=== PATIENT | male | born 1935 | race Caucasian/White ===

== ENCOUNTER 2016-08-18 01:35 | Inpatient (IN) | payer OTHER, MEDICARE ==
[~2016-08-18] VITALS: Ht 172.7 cm; Wt 83.1 kg
[2016-08-18 01:57] VITALS: TEMP 98.2
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
[2016-08-18 02:02] VITALS: O2SAT 91
[2016-08-18 02:18] LABS: AUTOMATED NEUTROPHIL # 6.5 TH/MM3 (1.8-7.7); BASOPHIL % 0.6 % (0.0-2.0); EOSINOPHIL # 0.7 TH/MM3 (0-0.4); EOSINOPHIL % 8.3 % (0.0-4.0); HEMATOCRIT 40.1 % (39.0-51.0); MEAN CELL VOLUME 93.7 FL (80.0-100.0); MEAN CORPUSCULAR HEMOGLOBIN 32.2 PG (27.0-34.0); MEAN CORPUSCULAR HGB CONC 34.4 % (32.0-36.0); MONO % 6.4 % (0.0-8.0); NEUT % 73.7 % (16.0-70.0); PLATELET COUNT 169 TH/MM3 (150-450); RED BLOOD COUNT 4.29 MIL/MM3 (4.50-5.90); WHITE BLOOD COUNT 8.8 TH/MM3 (4.0-11.0)
[2016-08-18 02:21] LABS: HEMO FLAGS AUTO DIFF
[2016-08-18 02:29] LABS: APTT (PATIENT) 28.1 SEC (24.3-30.1); INTERNATIONAL NORMALIZED RATIO 1.1 RATIO; PROTHROMBIN TIME - PATIENT 11.7 SEC (9.8-11.6)
[2016-08-18 02:38] LABS: ALT (GPT) 27 U/L (12-78); ANION GAP 9 MEQ/L (5-15); AST (GOT) 19 U/L (15-37); BICARBONATE 29.7 MEQ/L (21.0-32.0); BLOOD UREA NITROGEN 18 MG/DL (7-18); CHLORIDE 102 MEQ/L (98-107); GLOMERULAR FILTRATION RATE 55 ML/MIN (>89); POTASSIUM 4.3 MEQ/L (3.5-5.1); SODIUM (NA) 141 MEQ/L (136-145)
[2016-08-18 02:48] LABS: ALKALINE PHOSPHATASE 91 U/L (45-117); TOTAL BILIRUBIN ADULT 0.6 MG/DL (0.2-1.0)
[2016-08-18 02:51] LABS: BANDS 3 % (0-6); BASOPHILS 3 % (0-2); EOSINOPHILS 8 % (0-4); MYELOCYTES 2 % (0-0); NEUTROPHIL # MANUAL DIFF 6.2 TH/MM3 (1.8-7.7); POLYS (SEG NEUTROPHILS) 66 % (16-70); SCAN/DIFF FINAL DIFF MANUAL; WBC DIFF SAMPLE 100
[2016-08-18 02:52] LABS: PLATELET ESTIMATE SMEAR NORMAL (NORMAL); PLATELET MORPHOLOGY NORMAL (NORMAL)
[2016-08-18 03:18] LABS: BLOOD, URINE NEG (NEG); COMMENT (UR) CULT NOT INDICATED; CULTURE IF INDICATED CULT NOT INDICATED; GLUCOSE,URINE NEG (NEG); GRANULAR CAST, URINE 5 /lpf; HYALINE CAST, URINE 11 /lpf (RARE); KETONE, URINE TRACE mg/dL (NEG); MUCUS URINE FEW /lpf (OCC); NITRITE,URINE NEG (NEG); PH, URINE 5.5 (5.0-8.5); URINE COLOR YELLOW (YELLW/STRAW)
[2016-08-18 03:22] LABS: AMPHETAMINE, URINE NEG (NEG); BARBITURATES, URINE NEG (NEG); COCAINE, URINE NEG (NEG)
[2016-08-18] MEDS ORDERED: QUET5TAB PO (06:34)
[2016-08-18] MEDS ORDERED: APIX5TAB PO (06:34)
[2016-08-18] MEDS ORDERED: METF1000 PO (06:34)
[2016-08-18] MEDS ORDERED: DIVA250T PO (06:34)
[2016-08-18] MEDS ORDERED: AMLO2.5T PO (06:34)
[2016-08-18] MEDS ORDERED: LISI40TA PO (06:34)
[2016-08-18] MEDS ORDERED: HYDR-3800 (06:34)
[2016-08-18] MEDS ORDERED: MEMA1TAB2 PO (06:34)
[2016-08-18] MEDS ORDERED: TAMS0.4C4 PO (06:34)
[2016-08-18] MEDS ORDERED: SODIUM CHLOR 0.9% 250 ML INJ 250 ML IV ONE (07:00)
[2016-08-18 08:48] VITALS: BP 196/95; PULSE 78; RESP 19; O2SAT 98
[2016-08-18] MEDS ORDERED: ALUMINUM/MAGNESIUM/SIMETH 30 ML CUP PO PRN (11:15)
[2016-08-18] MEDS ORDERED: traZODone HCL 50 MG TAB PO PRN (11:15)
[2016-08-18] MEDS ORDERED: MAGNESIUM HYDROXIDE SUSP 30 ML CUP PO PRN (11:15)
[2016-08-18 12:13] VITALS: BP 217/97; PULSE 88; RESP 20; O2SAT 96
--- NOTE | 2016-08-18 12:21 | PD ---
Physical Exam Date Seen by Provider: Aug 18, 2016 Time Seen by Provider: 12:05 Narrative I was called by the nurse to evaluate this patient who slipped and fell while in [facility]. Patient states he simply lost his balance and fell. He denies hitting his head or loss of consciousness. He has no headache, signs of trauma , or complaints of any kind. Data Data Last Documented VS Vital Signs Date Time Temp Pulse Resp B/P Pulse Ox O2 Delivery O2 Flow Rate FiO2 08/18/16 08:48 78 19 196/95 98 Room Air 08/18/16 01:57 98.2 Orders Complete Blood Count With Diff (08/18/16 01:58) Comprehensive Metabolic Panel (08/18/16 01:58) Prothrombin Time / Inr (Pt) (08/18/16 01:58) Act Partial Throm Time (Ptt) (08/18/16 01:58) Lipase (08/18/16 01:58) Urinalysis - C+S If Indicated (08/18/16 01:58) Cath For Specimen (08/18/16 01:58) Thyroid Stimulating Hormone (08/18/16 01:58) Iv Access Insert/Monitor (08/18/16 01:58) Ecg Monitoring (08/18/16 01:58) Oximetry (08/18/16 01:58) Drug Screen, Random Urine (08/18/16 01:58) Alcohol (Ethanol) (08/18/16 01:58) Psych Screen (08/18/16 01:58) Sodium Chlor 0.9% 250 Ml Inj (Ns 250 Ml (08/18/16 07:00) Admit Order (Ed Use Only) (08/18/16 11:06) Labs Laboratory Tests Test 08/18/16 08/18/16 02:09 03:02 White Blood Count 8.8 TH/MM3 Red Blood Count 4.29 MIL/MM3 Hemoglobin 13.8 GM/DL Hematocrit 40.1 % Mean Corpuscular Volume 93.7 FL Mean Corpuscular Hemoglobin 32.2 PG Mean Corpuscular Hemoglobin 34.4 % Concent Red Cell Distribution Width 15.0 % Platelet Count 169 TH/MM3 Mean Platelet Volume 8.2 FL Neutrophils (%) (Auto) 73.7 % Lymphocytes (%) (Auto) 11.0 % Monocytes (%) (Auto) 6.4 % Eosinophils (%) (Auto) 8.3 % Basophils (%) (Auto) 0.6 % Neutrophils # (Auto) 6.5 TH/MM3 Lymphocytes # (Auto) 1.0 TH/MM3 Monocytes # (Auto) 0.6 TH/MM3 Eosinophils # (Auto) 0.7 TH/MM3 Basophils # (Auto) 0.0 TH/MM3 CBC Comment AUTO DIFF Differential Total Cells 100 Counted Neutrophils % (Manual) 66 % Band Neutrophils % 3 % Lymphocytes % 11 % Monocytes % 7 % Eosinophils % 8 % Basophils % 3 % Neutrophils # (Manual) 6.2 TH/MM3 Myelocytes 2 % Differential Comment FINAL DIFF MANUAL Platelet Estimate NORMAL Platelet Morphology Comment NORMAL Red Cell Morphology Comment NORMAL Prothrombin Time 11.7 SEC Prothromb Time International 1.1 RATIO Ratio Activated Partial 28.1 SEC Thromboplast Time Sodium Level 141 MEQ/L Potassium Level 4.3 MEQ/L Chloride Level 102 MEQ/L Carbon Dioxide Level 29.7 MEQ/L Anion Gap 9 MEQ/L Blood Urea Nitrogen 18 MG/DL Creatinine 1.25 MG/DL Estimat Glomerular Filtration 55 ML/MIN Rate Random Glucose 121 MG/DL Calcium Level 9.3 MG/DL Total Bilirubin 0.6 MG/DL Aspartate Amino Transf 19 U/L (AST/SGOT) Alanine Aminotransferase 27 U/L (ALT/SGPT) Alkaline Phosphatase 91 U/L Total Protein 6.8 GM/DL Albumin 3.1 GM/DL Lipase 240 U/L Thyroid Stimulating Hormone 2.140 uIU/ML 3rd Gen Ethyl Alcohol Level LESS THAN 3 MG/DL Urine Color YELLOW Urine Turbidity CLEAR Urine pH 5.5 Urine Specific [place] 1.012 Urine Protein TRACE mg/dL Urine Glucose (UA) NEG mg/dL Urine Ketones TRACE mg/dL Urine Occult Blood NEG Urine Nitrite NEG Urine Bilirubin NEG Urine Urobilinogen LESS THAN 2.0 MG/DL Urine Leukocyte Esterase NEG Urine RBC LESS THAN 1 /hpf Urine WBC 2 /hpf Urine Hyaline Casts 11 /lpf Urine Granular Casts 5 /lpf Urine Mucus FEW /lpf Microscopic Urinalysis Comment CULT NOT INDICATED Urine Opiates Screen NEG Urine Barbiturates Screen NEG Urine Amphetamines Screen NEG Urine Benzodiazepines Screen NEG Urine Cocaine Screen NEG Urine Cannabinoids Screen NEG MDM Medical Record Reviewed: Yes Supervised Visit with COREY: Yes Narrative Course GENERAL: Patient appears in no acute distress, and is sitting, eating his lunch. SKIN: Warm and dry. Normal color. Normal turgor. No signs of ration, ecchymosis, or other signs of trauma. HEAD: Atraumatic. Normocephalic. Nontender with palpation. EYES: Pupils equal and round. No scleral icterus. No injection or drainage. ENT: No nasal bleeding or discharge. Mucous membranes pink and moist. No dental injury. Pharynx is clear. Airway is patent. NECK: Trachea midline. No bony tenderness or step-off. Range of motion is full and without tenderness. Diagnosis Primary Impression: Agitation Additional Impression: History of dementia Condition: Stable Bret Menendez Aug 18, 2016 12:21
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
[2016-08-18] MEDS: metFORMIN HCL 500 MG TAB PO SCH ×2 (12:30→18:28)
[2016-08-18] MEDS ORDERED: DIVALPROEX SODIUM DELAYED RELEASE 250 MG TAB PO SCH (13:00)
[2016-08-18] MEDS: APIXABAN 5 MG TABLET PO SCH ×2 (13:00→21:00)
[2016-08-18] MEDS: MEMANTINE HCL 10 MG TAB PO SCH ×2 (13:00→21:00)
[2016-08-18] MEDS: DIVALPROEX SODIUM E.R. 250 MG TAB PO SCH ×2 (13:00→21:00)
[2016-08-18] MEDS: TAMSULOSIN HCL 0.4 MG CAP PO SCH ×2 (13:00→18:28)
[2016-08-18] MEDS: LISINOPRIL 20 MG TAB PO SCH (13:00)
[2016-08-18] MEDS: amLODIPine BESYLATE 5 MG TAB PO SCH (13:00)
[2016-08-18] MEDS ORDERED: ZIPRASIDONE MESYLATE 20 MG VIAL IM ONE ×2 (14:13→15:30)
[2016-08-18] MEDS ORDERED: diphenhydrAMINE HCL 50 MG/ML VIAL ONE (14:13)
[2016-08-18 14:27] VITALS: BP 152/77; PULSE 81; RESP 18; O2SAT 97
[2016-08-18] MEDS ORDERED: cloNIDine HCL 0.1 MG TAB PO PRN (15:15)
[2016-08-18] MEDS ORDERED: diphenhydrAMINE HCL 50 MG/ML VIAL IM ONE (15:30)
[2016-08-18] MEDS ORDERED: GLUCAGON 1 MG/ML VIAL OTHER PRN (15:45)
[2016-08-18] MEDS ORDERED: DEXTROSE 50% IN WATER 50 ML VIAL(D50) IV PUSH PRN (15:45)
[2016-08-18] MEDS: INSULIN ASPART SUPPLEMENTAL SCALE SQ SCH ×2 (16:00→20:48)
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
[2016-08-18 18:00] VITALS: BP 159/72; PULSE 73; RESP 18; TEMP 97.8; O2SAT 97
[2016-08-18] MEDS ORDERED: LORazepam 2 MG/ML VIAL IM ONE (23:15)
[2016-08-18] MEDS ORDERED: OLANZapine IM 10 MG VIAL IM ONE (23:15)
[2016-08-19 06:00] VITALS: BP 147/64; PULSE 80; RESP 18; O2SAT 92
[2016-08-19] MEDS: INSULIN ASPART SUPPLEMENTAL SCALE SQ SCH ×4 (06:38→21:23)
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
[2016-08-19] MEDS: DIVALPROEX SODIUM E.R. 250 MG TAB PO SCH ×2 (08:59→21:21)
[2016-08-19] MEDS: APIXABAN 5 MG TABLET PO SCH ×2 (08:59→21:21)
[2016-08-19] MEDS: TAMSULOSIN HCL 0.4 MG CAP PO SCH ×3 (08:59→21:21)
[2016-08-19] MEDS: amLODIPine BESYLATE 5 MG TAB PO SCH (09:00)
[2016-08-19] MEDS: metFORMIN HCL 500 MG TAB PO SCH ×2 (09:00→18:52)
[2016-08-19] MEDS: LISINOPRIL 20 MG TAB PO SCH (09:00)
[2016-08-19] MEDS: MEMANTINE HCL 10 MG TAB PO SCH ×2 (09:00→21:21)
[2016-08-19 10:40] LABS: ALKALINE PHOSPHATASE 94 U/L (45-117); ALT (GPT) 31 U/L (12-78); ANION GAP 8 MEQ/L (5-15); AST (GOT) 34 U/L (15-37); BICARBONATE 32.8 MEQ/L (21.0-32.0); BLOOD UREA NITROGEN 17 MG/DL (7-18); CHLORIDE 104 MEQ/L (98-107); GLOMERULAR FILTRATION RATE 49 ML/MIN (>89); HDL CHOLESTEROL 37.5 MG/DL (40.0-60.0); LDL CHOLESTEROL 132 MG/DL (0-99); POTASSIUM 5.1 MEQ/L (3.5-5.1); SODIUM (NA) 145 MEQ/L (136-145); TOTAL BILIRUBIN ADULT 0.6 MG/DL (0.2-1.0)
[2016-08-19 12:36] LABS: AUTOMATED NEUTROPHIL # 8.5 TH/MM3 (1.8-7.7); BASOPHIL # 0.1 TH/MM3 (0-0.2); BASOPHIL % 1.2 % (0.0-2.0); EOSINOPHIL # 0.4 TH/MM3 (0-0.4); EOSINOPHIL % 3.9 % (0.0-4.0); HEMATOCRIT 42.7 % (39.0-51.0); LYMPHOCYTE # 0.8 TH/MM3 (1.0-4.8); MEAN CELL VOLUME 92.6 FL (80.0-100.0); MEAN CORPUSCULAR HEMOGLOBIN 31.6 PG (27.0-34.0); MEAN CORPUSCULAR HGB CONC 34.1 % (32.0-36.0); NEUT % 79.9 % (16.0-70.0); PLATELET COUNT 181 TH/MM3 (150-450); RED CELL DISTRIBUTION WIDTH 14.8 % (11.6-17.2); WHITE BLOOD COUNT 10.6 TH/MM3 (4.0-11.0)
[2016-08-19 12:38] LABS: HEMO FLAGS AUTO DIFF
--- NOTE | 2016-08-19 13:06 | PD.CARD.PN ---
Subjective Subjective Remarks No complaints, seems more calm Objective Medications Current Medications Medications (Trade) Dose Ordered Sig/Krish Route Start Time Stop Time Status Last Admin (Tylenol) 650 mg Q4H PRN PO 08/18/16 11:15 (Milk Of Magnesia Liq) 30 ml DAILY PRN PO 08/18/16 11:15 (Mag-Al Plus Susp Liq) 30 ml Q6H PRN PO 08/18/16 11:15 (Desyrel) 50 mg HS PRN PO 08/18/16 11:15 (Eliquis) 5 mg BID PO 08/18/16 13:00 08/19/16 08:59 (Namenda) 10 mg BID PO 08/18/16 13:00 08/19/16 09:00 (Glucophage) 1,000 mg BIDPC PO 08/18/16 12:30 08/19/16 09:00 (Flomax) 0.4 mg TID PO 08/18/16 13:00 08/19/16 08:59 (Prinivil) 40 mg DAILY PO 08/18/16 13:00 08/19/16 09:00 (Depakote Er) 250 mg BID PO 08/18/16 13:00 08/19/16 08:59 (Norvasc) 5 mg DAILY PO 08/18/16 13:00 08/19/16 09:00 (Catapres) 0.1 mg Q6H PRN PO 08/18/16 15:15 (D50w (Vial) Inj) 25 ml UNSCH PRN IV PUSH 08/18/16 15:45 (Glucagon Inj) 1 mg UNSCH PRN OTHER 08/18/16 15:45 Vital Signs / I&O Vital Signs Date Time Temp Pulse Resp B/P Pulse Ox O2 Delivery O2 Flow Rate FiO2 08/19/16 06:00 80 18 147/64 92 08/18/16 18:00 97.8 73 18 159/72 97 08/18/16 14:27 81 18 152/77 97 Room Air I/O 08/18/16 08/18/16 08/18/16 08/19/16 08/19/16 08/19/16 07:00 15:00 23:00 07:00 15:00 23:00 Intake Total 240 ml 240 ml 720 ml Balance 240 ml 240 ml 720 ml Intake Oral 240 ml 240 ml 720 ml # Voids 1 1 1 2 Physical Exam GENERAL: NAD SKIN: Warm and dry. HEAD: Atraumatic. Normocephalic. EYES: Pupils equal and round. No scleral icterus. No injection or drainage. ENT: No nasal bleeding or discharge. Mucous membranes pink and moist. NECK: Trachea midline. No JVD. CARDIOVASCULAR: Regular rate and rhythm. 02/28 crescendo-decrescendo murmur to the RSB RESPIRATORY: No accessory muscle use. Clear to auscultation. Breath sounds equal bilaterally. GASTROINTESTINAL: Abdomen soft, non-tender, nondistended. Hepatic and splenic margins not palpable. MUSCULOSKELETAL: Extremities without clubbing, cyanosis, or edema. No obvious deformities. NEUROLOGICAL: Awake and alert. No obvious cranial nerve deficits. Motor grossly within normal limits. Five out of 5 muscle strength in the arms and legs. Normal speech. PSYCHIATRIC: Appropriate mood and affect; insight and judgment normal. Laboratory Laboratory Tests Test 08/19/16 08/19/16 06:45 11:34 Sodium Level 145 MEQ/L Potassium Level 5.1 MEQ/L Chloride Level 104 MEQ/L Carbon Dioxide Level 32.8 MEQ/L Anion Gap 8 MEQ/L Blood Urea Nitrogen 17 MG/DL Creatinine 1.39 MG/DL Estimat Glomerular Filtration 49 ML/MIN Rate Random Glucose 125 MG/DL Calcium Level 9.8 MG/DL Total Bilirubin 0.6 MG/DL Aspartate Amino Transf 34 U/L (AST/SGOT) Alanine Aminotransferase 31 U/L (ALT/SGPT) Alkaline Phosphatase 94 U/L Total Protein 7.2 GM/DL Albumin 3.4 GM/DL Triglycerides Level 120 MG/DL Cholesterol Level 193 MG/DL LDL Cholesterol 132 MG/DL HDL Cholesterol 37.5 MG/DL Cholesterol/HDL Ratio 5.14 RATIO Vitamin B12 Level 1326 PG/ML 25-Hydroxy Vitamin D Total 15.7 ng/ML Thyroid Stimulating Hormone 1.950 uIU/ML 3rd Gen White Blood Count 10.6 TH/MM3 Red Blood Count 4.60 MIL/MM3 Hemoglobin 14.5 GM/DL Hematocrit 42.7 % Mean Corpuscular Volume 92.6 FL Mean Corpuscular Hemoglobin 31.6 PG Mean Corpuscular Hemoglobin 34.1 % Concent Red Cell Distribution Width 14.8 % Platelet Count 181 TH/MM3 Mean Platelet Volume 8.4 FL Neutrophils (%) (Auto) 79.9 % Lymphocytes (%) (Auto) 8.0 % Monocytes (%) (Auto) 7.0 % Eosinophils (%) (Auto) 3.9 % Basophils (%) (Auto) 1.2 % Neutrophils # (Auto) 8.5 TH/MM3 Lymphocytes # (Auto) 0.8 TH/MM3 Monocytes # (Auto) 0.7 TH/MM3 Eosinophils # (Auto) 0.4 TH/MM3 Basophils # (Auto) 0.1 TH/MM3 CBC Comment AUTO DIFF Assessment and Plan Problem List: (1) Dementia in other diseases classified elsewhere with behavioral disturbance (2) History of dementia (3) Agitation (4) HTN (hypertension) (5) CVA (cerebral vascular accident) Assessment and Plan 1) EKG pending for QTc 2) No further cardiovascular intervention 3) Con't to follow vitals 4) Discussed with daughter, plan to avoid medications as best as we can that cause problems with the heart, but have to work within our means Mariano Simms DO Aug 19, 2016 13:06
[2016-08-19 13:16] LABS: HEMOGLOBIN A1a 1.7 %; HEMOGLOBIN A1b 1.8 %; HEMOGLOBIN LA1C 1.2 %; HEMOGLOBIN P3 3.6 %
--- NOTE | 2016-08-19 13:16 | HHI.PYPN ---
Subjective Remarks Patient seen in dayroom with medical student Mat and patient's daughter Crystal was an emergency department nurse. Daughter is history of patient having dementia followed by CVA and the development of multi-infarct dementia with increased owning. This also issues with significant side effects from medications related to his cardiac status. Though it appears to Depakote and Seroquel are being tolerated well we will restart the Seroquel at 50 mg 3 times a day Review of Systems Except as stated in HPI: all other systems reviewed are Neg Objective Alert: Yes [place]: Person (vaguely) Mood: Anxious (mildly), Calm Affect: Restricted (slightly) Memory Intact: Comment (poor) Hallucinations: Other (denies) Delusions: No Delusion Type: Other (mildly vigilant) Suicidal: Ideation (denies) Homicidal: Ideation (deny) Insight/Judgment Poor Labs Test 08/19/16 08/19/16 06:45 11:34 Sodium Level 145 MEQ/L Potassium Level 5.1 MEQ/L Chloride Level 104 MEQ/L Carbon Dioxide Level 32.8 MEQ/L Anion Gap 8 MEQ/L Blood Urea Nitrogen 17 MG/DL Creatinine 1.39 MG/DL Estimat Glomerular Filtration 49 ML/MIN Rate Random Glucose 125 MG/DL Calcium Level 9.8 MG/DL Total Bilirubin 0.6 MG/DL Aspartate Amino Transf 34 U/L (AST/SGOT) Alanine Aminotransferase 31 U/L (ALT/SGPT) Alkaline Phosphatase 94 U/L Total Protein 7.2 GM/DL Albumin 3.4 GM/DL Triglycerides Level 120 MG/DL Cholesterol Level 193 MG/DL LDL Cholesterol 132 MG/DL HDL Cholesterol 37.5 MG/DL Cholesterol/HDL Ratio 5.14 RATIO Vitamin B12 Level 1326 PG/ML 25-Hydroxy Vitamin D Total 15.7 ng/ML Thyroid Stimulating Hormone 1.950 uIU/ML 3rd Gen White Blood Count 10.6 TH/MM3 Red Blood Count 4.60 MIL/MM3 Hemoglobin 14.5 GM/DL Hematocrit 42.7 % Mean Corpuscular Volume 92.6 FL Mean Corpuscular Hemoglobin 31.6 PG Mean Corpuscular Hemoglobin 34.1 % Concent Red Cell Distribution Width 14.8 % Platelet Count 181 TH/MM3 Mean Platelet Volume 8.4 FL Neutrophils (%) (Auto) 79.9 % Lymphocytes (%) (Auto) 8.0 % Monocytes (%) (Auto) 7.0 % Eosinophils (%) (Auto) 3.9 % Basophils (%) (Auto) 1.2 % Neutrophils # (Auto) 8.5 TH/MM3 Lymphocytes # (Auto) 0.8 TH/MM3 Monocytes # (Auto) 0.7 TH/MM3 Eosinophils # (Auto) 0.4 TH/MM3 Basophils # (Auto) 0.1 TH/MM3 CBC Comment AUTO DIFF Vitals/IOs Vital Signs Date Time Temp Pulse Resp B/P Pulse Ox O2 Delivery O2 Flow Rate FiO2 08/19/16 06:00 80 18 147/64 92 08/18/16 18:00 97.8 08/18/16 14:27 Room Air Intake and Output 08/18/16 08/18/16 08/19/16 08:00 16:00 00:00 Intake Total 240 ml Balance 240 ml Assessment & Plan Problem List: (1) Dementia in other diseases classified elsewhere with behavioral disturbance ICD Code: F02.81 Assessment & Plan Estimated LOS: days patient continues demented and confused, the no behavior problems have been noted so far today. Daughter confirms willingness to use Seroquel and Depakote at this time we'll reassess to the Seroquel at 50 mg 3 times a day Justification for Cont. Inpt. At this time patient will decompensate then placed in a lower level of care Discharge Planning To be determined Jeovanny Stewart MD Aug 19, 2016 13:16
[2016-08-19 13:25] LABS: SCAN/DIFF AUTO DIFF CONFIRMED
[2016-08-19] MEDS: QUEtiapine FUMARATE 25 MG TAB PO SCH (18:52)
[2016-08-20] MEDS: INSULIN ASPART SUPPLEMENTAL SCALE SQ SCH ×4 (07:00→20:30)
[2016-08-20] MEDS: amLODIPine BESYLATE 5 MG TAB PO SCH (09:00)
[2016-08-20] MEDS: APIXABAN 5 MG TABLET PO SCH ×2 (09:00→21:12)
[2016-08-20 09:25] VITALS: BP 112/69; PULSE 65; RESP 16; TEMP 97.4; O2SAT 97
[2016-08-20] MEDS: LISINOPRIL 20 MG TAB PO SCH (09:29)
[2016-08-20] MEDS: DIVALPROEX SODIUM E.R. 250 MG TAB PO SCH ×2 (09:29→21:12)
[2016-08-20] MEDS: MEMANTINE HCL 10 MG TAB PO SCH ×2 (09:29→21:12)
[2016-08-20] MEDS: metFORMIN HCL 500 MG TAB PO SCH ×2 (09:30→17:47)
[2016-08-20] MEDS: QUEtiapine FUMARATE 25 MG TAB PO SCH ×3 (09:30→17:47)
--- NOTE | 2016-08-20 10:47 | HHI.PYPN ---
Subjective Remarks Patient seen on unit with nurse Columba, chart reviewed, patient compliant medications. Patient sitting in Amira chair is calm cooperative with diffusely confused. While he needs assistance his showing no behavioral issues at this time. However patient did need EPO of Zyprexa around 3 PM yesterday for some increased agitation Review of Systems Except as stated in HPI: all other systems reviewed are Neg Objective Alert: Yes [place]: Person (vaguely) Mood: Anxious (mildly), Calm Affect: Restricted (slightly) Memory Intact: Comment (poor) Hallucinations: Other (denies) Delusions: No Delusion Type: Other (mildly vigilant) Suicidal: Ideation (denies) Homicidal: Ideation (deny) Insight/Judgment Poor Labs Test 08/19/16 11:34 White Blood Count 10.6 TH/MM3 Red Blood Count 4.60 MIL/MM3 Hemoglobin 14.5 GM/DL Hematocrit 42.7 % Mean Corpuscular Volume 92.6 FL Mean Corpuscular Hemoglobin 31.6 PG Mean Corpuscular Hemoglobin 34.1 % Concent Red Cell Distribution Width 14.8 % Platelet Count 181 TH/MM3 Mean Platelet Volume 8.4 FL Neutrophils (%) (Auto) 79.9 % Lymphocytes (%) (Auto) 8.0 % Monocytes (%) (Auto) 7.0 % Eosinophils (%) (Auto) 3.9 % Basophils (%) (Auto) 1.2 % Neutrophils # (Auto) 8.5 TH/MM3 Lymphocytes # (Auto) 0.8 TH/MM3 Monocytes # (Auto) 0.7 TH/MM3 Eosinophils # (Auto) 0.4 TH/MM3 Basophils # (Auto) 0.1 TH/MM3 CBC Comment AUTO DIFF Differential Comment AUTO DIFF CONFIRMED Vitals/IOs Vital Signs Date Time Temp Pulse Resp B/P Pulse Ox O2 Delivery O2 Flow Rate FiO2 08/20/16 09:25 97.4 65 16 112/69 97 08/18/16 14:27 Room Air Intake and Output 08/19/16 08/19/16 08/20/16 08:00 16:00 00:00 Intake Total 240 ml 720 ml 2235 ml Balance 240 ml 720 ml 2235 ml Assessment & Plan Problem List: (1) Dementia in other diseases classified elsewhere with behavioral disturbance ICD Code: F02.81 Assessment & Plan Estimated LOS: days patient continues confused and demented, show some behavioral issues yesterday late afternoon was been no problems so far today. For now continue treatment Justification for Cont. Inpt. At this time patient will decompensate if placed a lower level of care Discharge Planning To be determined Jeovanny Stewart MD Aug 20, 2016 10:47
--- NOTE | 2016-08-20 12:56 | PD.CARD.PN ---
Subjective Subjective Remarks No complaints, per nursing mildly confused Objective Medications Current Medications Medications (Trade) Dose Ordered Sig/Krish Route Start Time Stop Time Status Last Admin (Tylenol) 650 mg Q4H PRN PO 08/18/16 11:15 (Milk Of Magnesia Liq) 30 ml DAILY PRN PO 08/18/16 11:15 (Mag-Al Plus Susp Liq) 30 ml Q6H PRN PO 08/18/16 11:15 (Desyrel) 50 mg HS PRN PO 08/18/16 11:15 Hold (Eliquis) 5 mg BID PO 08/18/16 13:00 08/20/16 09:00 (Namenda) 10 mg BID PO 08/18/16 13:00 08/20/16 09:29 (Glucophage) 1,000 mg BIDPC PO 08/18/16 12:30 08/20/16 09:30 (Prinivil) 40 mg DAILY PO 08/18/16 13:00 08/20/16 09:29 (Depakote Er) 250 mg BID PO 08/18/16 13:00 08/20/16 09:29 (Norvasc) 5 mg DAILY PO 08/18/16 13:00 08/20/16 09:00 (Catapres) 0.1 mg Q6H PRN PO 08/18/16 15:15 (D50w (Vial) Inj) 25 ml UNSCH PRN IV PUSH 08/18/16 15:45 (Glucagon Inj) 1 mg UNSCH PRN OTHER 08/18/16 15:45 (Flomax) 0.4 mg HS PO 08/19/16 21:00 08/19/16 21:21 (SEROquel) 50 mg TID PO 08/19/16 18:00 08/20/16 09:30 (ZyPREXA INJ) 5 mg Q8HR PRN IM 08/19/16 14:45 Vital Signs / I&O Vital Signs Date Time Temp Pulse Resp B/P Pulse Ox O2 Delivery O2 Flow Rate FiO2 08/20/16 09:25 97.4 65 16 112/69 97 I/O 08/19/16 08/19/16 08/19/16 08/20/16 08/20/16 08/20/16 07:00 15:00 23:00 07:00 15:00 23:00 Intake Total 240 ml 720 ml 2235 ml 0 ml 480 ml Balance 240 ml 720 ml 2235 ml 0 ml 480 ml Intake Oral 240 ml 720 ml 2235 ml 0 ml 480 ml # Voids 2 4 1 Physical Exam GENERAL: NAD SKIN: Warm and dry. HEAD: Atraumatic. Normocephalic. EYES: Pupils equal and round. No scleral icterus. No injection or drainage. ENT: No nasal bleeding or discharge. Mucous membranes pink and moist. NECK: Trachea midline. No JVD. CARDIOVASCULAR: Regular rate and rhythm. 1/6 crescendo-decrescendo murmur to the RSB RESPIRATORY: No accessory muscle use. Clear to auscultation. Breath sounds equal bilaterally. GASTROINTESTINAL: Abdomen soft, non-tender, nondistended. Hepatic and splenic margins not palpable. MUSCULOSKELETAL: Extremities without clubbing, cyanosis, or edema. No obvious deformities. NEUROLOGICAL: Awake and alert. No obvious cranial nerve deficits. Motor grossly within normal limits. Five out of 5 muscle strength in the arms and legs. Normal speech. PSYCHIATRIC: Appropriate mood and affect; insight and judgment normal. Assessment and Plan Problem List: (1) Dementia in other diseases classified elsewhere with behavioral disturbance (2) History of dementia (3) Agitation (4) HTN (hypertension) (5) CVA (cerebral vascular accident) Assessment and Plan 1) QTc 444 2) No further cardiovascular intervention 3) Con't to follow vitals, currently stable 4) Discussed with daughter, plan to avoid medications as best as we can that cause problems with the heart, but have to work within our means 5) Will see PRN, call with questions Mariano Simms DO Aug 20, 2016 12:56
--- NOTE | 2016-08-20 13:25 | HHI.PR ---
Objective Vitals Vital Signs Date Time Temp Pulse Resp B/P Pulse Ox O2 Delivery O2 Flow Rate FiO2 08/20/16 09:25 97.4 65 16 112/69 97 I/O 08/19/16 08/19/16 08/19/16 08/20/16 08/20/16 08/20/16 06:59 14:59 22:59 06:59 14:59 22:59 Intake Total 240 ml 720 ml 2235 ml 0 ml 480 ml Balance 240 ml 720 ml 2235 ml 0 ml 480 ml Intake Oral 240 ml 720 ml 2235 ml 0 ml 480 ml # Voids 2 4 1 Result Diagram: 08/19/16 1134 08/19/16 0645 Juan Manuel Christianson Aug 20, 2016 13:25
--- NOTE | 2016-08-20 15:38 | HHI.PR ---
Subjective Remarks Follow-up visit dementia, coronary artery disease, hypertension, history of CVA currently on Eliquis, diabetes, BPH, questionable seizure disorder. Patient seen and examined today. States he is doing okay. As per nursing, patient has improved behavior compared to previous days. Denies pain and discomfort. Denies SOB/ dyspnea. Denies chest pain, palpitations, headaches, dizziness. Denies fevers, chills, n/v/d. Denies dysuria. Objective Vitals Vital Signs Date Time Temp Pulse Resp B/P Pulse Ox O2 Delivery O2 Flow Rate FiO2 08/20/16 09:25 97.4 65 16 112/69 97 I/O 08/19/16 08/19/16 08/19/16 08/20/16 08/20/16 08/20/16 07:00 15:00 23:00 07:00 15:00 23:00 Intake Total 240 ml 720 ml 2235 ml 0 ml 480 ml Balance 240 ml 720 ml 2235 ml 0 ml 480 ml Intake Oral 240 ml 720 ml 2235 ml 0 ml 480 ml # Voids 2 4 1 Result Diagram: 08/19/16 1134 08/19/16 0645 Objective Remarks GENERAL: This is a well-nourished, well-developed patient, in no apparent distress. SKIN: Warm and dry. HEENT: Normocephalic. Pupils equal round and reactive. Nose without bleeding. Airway patent. NECK: Trachea midline. No JVD. Supple. CARDIOVASCULAR: Regular rate and rhythm without murmurs, gallops, or rubs. RESPIRATORY: Clear to auscultation. Breath sounds equal bilaterally. No wheezes , rales, or rhonchi. GASTROINTESTINAL: Abdomen soft, non-tender, nondistended. Bowel Sounds normoactive x4. MUSCULOSKELETAL: Extremities without clubbing, cyanosis, bilateral lower extremity +2 edema. NEUROLOGICAL: Awake and alert. Oriented to place, person. Bilateral lower extremity weakness. Normal speech. A/P Problem List: (1) History of dementia ICD Code: Z86.59 Status: Acute (2) CVA (cerebral vascular accident) ICD Code: I63.9 Status: Acute (3) HTN (hypertension) ICD Code: I10 Status: Acute Assessment and Plan 81-year-old male with past medical history of dementia, coronary artery disease , hypertension, history of CVA currently on Eliquis, diabetes, BPH and possible seizure disorder who was brought into the ED under Gao act and became combative with the staff at the [facility] he [facility]. Patient's been admitted to psychiatric and it hospitalist services have been consulted for medical management. Dementia with behavioral disturbances - Management per psychiatric team - On Memantine 10mg BID, Seroquel, Zyprexa Coronary artery disease Hypertension, accelerated Atrial fibrillation - Cardiology services consulted recommended to avoid medications that could prolong QTc - Continue home antihypertensives - Lisinopril 40mg daily, Amlodipine 5mg daily. Increase as needed - Clonidine prn - Continue Eliquis - Improving BP trend Acute kidney injury on chronic kidney disease - Encourage by mouth fluid hydration - Monitor creatinine trend Bilateral lower extremity edema - Elevate bilateral lower extremity - Poor mobility Hyperlipidemia - Patient is allergic to HMG CoA reductase inhibitors - May start fish oil, [place] 3 and Zetia - May benefit with PCSK9 inhibitors - Evolocumab, alirocumab. Will need to follow-up with primary care doctor. History of CVA - Patient denies residual weakness - Continue home Eliquis - Patient witnessed having some difficulty with ambulation, appears unsteady on his feet. - Followed by physical therapy DM 2 - Hemoglobin A1c 6.5. Controlled - Continue metformin - Accu-Cheks - Insulin sliding scale Questionable history of seizure disorder - Patient denies - Continue home dose of valproic acid Vitamin D insufficiency - Start vitamin D supplementation - Repeat vitamin D levels in 3 months as an outpatient BPH - Continue home dose of tamsulosin DVT prophylaxis - Ambulation Discussed with patient, nursing, Juan Manuel Grant Aug 20, 2016 15:38
--- NOTE | 2016-08-20 16:01 | PD.CONS ---
Provisional Diagnosis Admission Date Aug 18, 2016 at 11:09 [place]. 1. Dementia with behavioral disturbance [place] II. Deferred [place] V. GAF is 30 presently History of Present Illness Service Psychiatry Consult Requested By Dr. Stewart Reason for Consult Second opinion for involuntary psychiatric hospitalization Primary Care Physician Traci Doty Do, MD HPI From Dr. Ely's H&P: This is an 81-year-old male with a history of dementia, CVA, cardiac disease, diabetes, and recent sundowning. Apparently the patient was recently at [facility] and last night he became agitated, belligerent and physically aggressive towards staff members. As a result of his violence and attempted violence toward staff members, he was Gao acted. At this time the patient is calm, pleasant and cooperative. He does not have a complete memory of what occurred last night. He is telling this physician that he was in some way disrespected by staff. However, this physician spoke with the patient's daughter, who is an emergency room nurse. The daughter indicates that her father sundown's rather badly in the late afternoon and early evening. At these times he becomes very confused, paranoid and aggressive towards others. He was recently treated at [facility] and had significant cardiac reactions to Haldol and Ativan, substantially altering his blood pressure, heart rate, etc. and necessitating intensive care monitoring. He was eventually placed on Seroquel 50 mg 3 times a day and Depakote 250 mg 3 times a day. Unfortunately, it appears these medicines are not working as the patient continues to sundown with violence towards others. He does not have a history of alcoholism or drug abuse. However, his daughter states since his cerebral vascular accident, he has been much more difficult to manage. On my examination today: Patient seen and examined. Chart reviewed. Case discussed with nursing staff. On my examination today, the patient is presently calm but confused. See full mental status testing below. He is unable to say why he came into the hospital. He is presently somewhat guarded. He denies feeling depressed. He denies any hallucinations. Denies any SI or HI. Psychiatric interview is limited, I suspect from a combination of his guardedness and also cognitive impairment. Past psychiatric history: The patient is likely an unreliable historian but denies a history of inpatient or other psychiatric treatment. Family history: The patient denies any family history of mental illness. Chemical dependency history: The patient denies any abuse of drugs or alcohol. Social history: The patient reports that he is with 3 children. 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 He was in the [employer] and had an honorable discharge. Review of Systems ROS Limitations: Poor Historian Except as stated in HPI: all other systems reviewed are Neg Past Family Social History Coded Allergies: HMG-CoA Reductase Inhibitors (Verified Allergy, Unknown, 08/18/16) Past Medical History See EMR Reported Medications Hydralazine HCl 50 Mg Tablet 08/18/16 Quetiapine 50 Mg Tab50 Mg PO TID #60 TAB Ref 0 08/18/[address] 250 Mg Qombd118 Mg PO TID #60 TAB Ref 0 08/18/16 Tamsulosin 0.4 Mg Cap0.4 Mg PO TID #30 CAP Ref 0 08/18/16 Lisinopril 40 Mg Tab40 Mg PO DAILY #30 TAB Ref 0 08/18/16 Amlodipine Unknown Strength Tab5 PO DAILY #30 TAB Ref 0 08/18/16 Memantine 10 Mg Tab10 Mg PO BID Ref 0 08/18/16 Metformin 1,000 Mg Tab1,000 Mg PO BIDPC #60 TAB Ref 0 With meals 08/18/16 Apixaban (Eliquis)5 Mg Tab5 Mg PO BID #60 TAB Ref 0 08/18/16 Current Medications Medications (Trade) Dose Ordered Sig/Krish Route Start Time Stop Time Status Last Admin (Tylenol) 650 mg Q4H PRN PO 08/18/16 11:15 (Milk Of Magnesia Liq) 30 ml DAILY PRN PO 08/18/16 11:15 (Mag-Al Plus Susp Liq) 30 ml Q6H PRN PO 08/18/16 11:15 (Desyrel) 50 mg HS PRN PO 08/18/16 11:15 Hold (Eliquis) 5 mg BID PO 08/18/16 13:00 08/20/16 09:00 (Namenda) 10 mg BID PO 08/18/16 13:00 08/20/16 09:29 (Glucophage) 1,000 mg BIDPC PO 08/18/16 12:30 08/20/16 09:30 (Prinivil) 40 mg DAILY PO 08/18/16 13:00 08/20/16 09:29 (Depakote Er) 250 mg BID PO 08/18/16 13:00 08/20/16 09:29 (Norvasc) 5 mg DAILY PO 08/18/16 13:00 08/20/16 09:00 (Catapres) 0.1 mg Q6H PRN PO 08/18/16 15:15 (D50w (Vial) Inj) 25 ml UNSCH PRN IV PUSH 08/18/16 15:45 (Glucagon Inj) 1 mg UNSCH PRN OTHER 08/18/16 15:45 (Flomax) 0.4 mg HS PO 08/19/16 21:00 08/19/16 21:21 (SEROquel) 50 mg TID PO 08/19/16 18:00 08/20/16 13:00 (ZyPREXA INJ) 5 mg Q8HR PRN IM 08/19/16 14:45 Family History See above Social History See above Patient's Strengths (min. 2) In a monitored setting. Verbally fluent. Physical Exam Physical exam completed by hospitalist. On my examination today, the patient appears to be in no acute physical distress. No motor abnormality noted. Labs and vital signs reviewed: Vital Signs Vital Signs Date Time Temp Pulse Resp B/P Pulse Ox O2 Delivery O2 Flow Rate FiO2 08/20/16 09:25 97.4 65 16 112/69 97 08/18/16 14:27 Room Air I/O 08/19/16 08/19/16 08/20/16 08:00 16:00 00:00 Intake Total 240 ml 720 ml 2235 ml Balance 240 ml 720 ml 2235 ml Lab Results Item Value Date Time White Blood Count 10.6 TH/MM3 08/19/16 1134 Hemoglobin 14.5 GM/DL 08/19/16 1134 Platelet Count 181 TH/MM3 08/19/16 1134 Sodium Level 145 MEQ/L 08/19/16 0645 Potassium Level 5.1 MEQ/L # 08/19/16 0645 Chloride Level 104 MEQ/L 08/19/16 0645 Carbon Dioxide Level 32.8 MEQ/L H 08/19/16 0645 Blood Urea Nitrogen 17 MG/DL 08/19/16 0645 Creatinine 1.39 MG/DL H 08/19/16 0645 Aspartate Amino Transf (AST/SGOT) 34 U/L 08/19/16 0645 Alanine Aminotransferase (ALT/SGPT) 31 U/L 08/19/16 0645 Alkaline Phosphatase 94 U/L 08/19/16 0645 25-Hydroxy Vitamin D Total 15.7 ng/ML L 08/19/16 06 Vitamin B12 Level 1326 PG/ML H 08/19/16 06 Thyroid Stimulating Hormone 3rd Gen 1.950 uIU/ML 08/19/16 06 Toxicology and urinalysis results reviewed. Mental Status Examination Patient is casually dressed. He is somewhat disheveled. He is awake and alert and oriented to person only. His registration is 3 out of 3 but his recall is 0 out of 3 at 3 minutes. He is able to spell the word world forwards but not backwards. He is able to name 2 items but struggles to repeat a phrase. No motor abnormalities noted. Speech somewhat sparse but otherwise within normal limits for rate, tone and volume. Memory impaired. Mood fair. Affect flat. Paucity of thought. No delusions although the patient is somewhat guarded. Denies audiovisual hallucinations. Denies suicidal or homicidal ideation but is likely unreliable to contract for safety. Insight and judgment are poor. Assessment & Plan Problem List: (1) Dementia in other diseases classified elsewhere with behavioral disturbance ICD Code: F02.81 Assessment & Plan Given the circumstances of the patient's presentation here and his presentation on my examination today, I concur with Dr. Stewart that the patient meets criteria for involuntary psychiatric hospitalization under the Gao act. I completed the second opinion paperwork. Further care as per Dr. Stewart. Thank you very much for this consultation. Signing off. Request HC Surrog/Guard Advoc?: Yes Danilo Woods MD Aug 20, 2016 16:01
[2016-08-20 18:00] VITALS: BP 107/58; PULSE 73; RESP 16; TEMP 89.8; O2SAT 98
--- NOTE | 2016-08-20 20:59 | RADRPT ---
EXAM DATE/TIME: 08/19/2016 19:57 [facility] COMPARISON: No previous studies available for comparison. INDICATIONS : Bilateral leg swelling. MEDICAL HISTORY : Dementia. Seizures. Anticoagulant therapy. Prostate cancer. SURGICAL HISTORY : CABG ENCOUNTER: Initial ACUITY: 1 week PAIN SCORE: 1/10 LOCATION: Bilateral legs. TECHNIQUE: Venous ultrasound of the left and right leg was performed from the inguinal ligament to the proximal calf. Real-time, color Doppler and spectral tracing, compression and augmentation techniques were us ed. FINDINGS: RIGHT LEG: There is normal compressibility of the deep venous system from the inguinal region to the proximal ca lf. No echogenic clot is seen in the lumen of the common femoral, femoral, popliteal, and posterior tibial veins. There is a normal response of the venous system to proximal and distal augmentation an d respiration. LEFT LEG: There is normal compressibility of the deep venous system from the inguinal region to the proximal ca lf. No echogenic clot is seen in the lumen of the common femoral, femoral, popliteal, and posterior tibial veins. There is a normal response of the venous system to proximal and distal augmentation an d respiration. There is a Gao's cyst measuring up to 3 cm in the popliteal fossa. CONCLUSION: 1. No evidence of deep venous thrombosis. 2. Small to moderate size Gao's cyst left popliteal fossa. Clayton Greer MD on August 20, 2016 at 20:55 Board Certified Radiologist. This report was verified electronically.
[2016-08-20] MEDS: TAMSULOSIN HCL 0.4 MG CAP PO SCH (21:12)
[2016-08-20] MEDS: OLANZapine IM 10 MG VIAL IM PRN (22:13)
--- NOTE | 2016-08-20 23:42 | EKG ---
Date Performed: 08/19/2016 Time Performed: 14:40:08 PTAGE: 81 years EKG: ATRIAL FIBRILLATION INDETERMINATE AXIS RIGHT BUNDLE BRANCH BLOCK ABNORMAL ECG NO PREVIOUS TRACING DOCTOR: Ava Palacios Interpretating Date/Time 08/20/2016 23:41:05
[2016-08-21] MEDS: INSULIN ASPART SUPPLEMENTAL SCALE SQ SCH ×4 (05:35→21:00)
[2016-08-21] MEDS: GEMFIBROZIL 600 MG TAB PO SCH ×2 (05:45→16:00)
[2016-08-21 06:01] VITALS: BP 133/65; PULSE 79; RESP 18; TEMP 96.8; O2SAT 97
[2016-08-21] MEDS: amLODIPine BESYLATE 5 MG TAB PO SCH (09:06)
[2016-08-21] MEDS: QUEtiapine FUMARATE 25 MG TAB PO SCH (09:06)
[2016-08-21] MEDS: MEMANTINE HCL 10 MG TAB PO SCH ×2 (09:06→22:15)
[2016-08-21] MEDS: LISINOPRIL 20 MG TAB PO SCH (09:06)
[2016-08-21] MEDS: DIVALPROEX SODIUM E.R. 250 MG TAB PO SCH ×2 (09:07→22:16)
[2016-08-21] MEDS: metFORMIN HCL 500 MG TAB PO SCH ×3 (09:07→17:19)
[2016-08-21] MEDS: APIXABAN 5 MG TABLET PO SCH ×2 (09:07→22:15)
--- NOTE | 2016-08-21 09:59 | HHI.PYPN ---
Subjective Remarks Patient seen in dayroom with medical student Mat, chart review, patient required medication. Patient continues confused and disoriented issues some increased agitation last night necessitating an IM of Zyprexa at about 10 PM for now continue medication no changes consider adjustment of the Seroquel tomorrow if behaviors persist Review of Systems Except as stated in HPI: all other systems reviewed are Neg Objective Alert: Yes Powers: Person (vaguely) Mood: Anxious (mildly), Calm Affect: Restricted (slightly) Memory Intact: Comment (poor) Hallucinations: Other (denies) Delusions: No Delusion Type: Other (mildly vigilant) Suicidal: Ideation (denies) Homicidal: Ideation (deny) Insight/Judgment Very poor Vitals/IOs Vital Signs Date Time Temp Pulse Resp B/P Pulse Ox O2 Delivery O2 Flow Rate FiO2 08/21/16 06:01 96.8 79 18 133/65 97 08/18/16 14:27 Room Air Intake and Output 08/20/16 08/20/16 08/21/16 08:00 16:00 00:00 Intake Total 240 ml 240 ml 600 ml Balance 240 ml 240 ml 600 ml Assessment & Plan Problem List: (1) Dementia in other diseases classified elsewhere with behavioral disturbance ICD Code: F02.81 Assessment & Plan Estimated LOS: days patient continues confused and demented, has some behavioral issues around 10 PM last night necessitating an IM dose of Zyprexa. At the present time he is calm cooperative Justification for Cont. Inpt. At this time patient will decompensate if placed in a lower level of care Discharge Planning To be determined Request HC Surrog/Guard Advoc?: Yes Jeovanny Stewart MD Aug 21, 2016 09:59
[2016-08-21] MEDS: OLANZapine IM 10 MG VIAL IM PRN (11:15)
[2016-08-21] MEDS ORDERED: OLANZapine IM 10 MG VIAL IM STA (12:27)
[2016-08-21] MEDS: OLANZapine IM 10 MG VIAL IM SCH ×2 (14:00→22:16)
[2016-08-21] MEDS ORDERED: PILL SPLITTER OTHER PRN (14:30)
[2016-08-21 22:12] VITALS: BP 159/63; PULSE 68; RESP 16
[2016-08-21] MEDS: TAMSULOSIN HCL 0.4 MG CAP PO SCH (22:16)
[2016-08-21] MEDS: QUEtiapine FUMARATE 100 MG TAB PO SCH (22:16)
[2016-08-22 04:47] VITALS: BP 125/72; PULSE 100; RESP 16; TEMP 97.5; O2SAT 97
[2016-08-22 06:15] VITALS: BP 125/72; PULSE 100; RESP 16; TEMP 97.5; O2SAT 97
[2016-08-22] MEDS: INSULIN ASPART SUPPLEMENTAL SCALE SQ SCH ×4 (06:24→21:50)
[2016-08-22] MEDS: GEMFIBROZIL 600 MG TAB PO SCH ×2 (06:25→16:00)
[2016-08-22] MEDS: OLANZapine IM 10 MG VIAL IM SCH ×2 (06:25→13:44)
[2016-08-22] MEDS: APIXABAN 5 MG TABLET PO SCH ×2 (09:55→21:51)
[2016-08-22] MEDS: LISINOPRIL 20 MG TAB PO SCH (09:55)
[2016-08-22] MEDS: metFORMIN HCL 500 MG TAB PO SCH ×2 (09:55→17:10)
[2016-08-22] MEDS: MEMANTINE HCL 10 MG TAB PO SCH ×2 (09:55→21:51)
[2016-08-22] MEDS: amLODIPine BESYLATE 5 MG TAB PO SCH (09:55)
[2016-08-22] MEDS: DIVALPROEX SODIUM E.R. 250 MG TAB PO SCH ×2 (09:55→21:51)
[2016-08-22 10:30] VITALS: TEMP 97.2
[2016-08-22 11:59] LABS: POTASSIUM 4.2 MEQ/L (3.5-5.1)
--- NOTE | 2016-08-22 12:33 | HHI.PYPN ---
Subjective Remarks Patient seen in day room with nurse Eve, medical student Mat, the patient' s daughter. Patient showing some increased behaviors to the day necessitating when necessary's of Zyprexa IM through late last night and early today. He continues markedly confused and disoriented. This was discussed with his daughter. We will add Zyprexa zydis 5 mg 8 AM and 4 PM to the regimen Review of Systems Except as stated in HPI: all other systems reviewed are Neg Objective Alert: Yes [place]: Person (vaguely) Mood: Anxious (mildly), Calm Affect: Restricted (slightly) Memory Intact: Comment (poor) Hallucinations: Other (denies) Delusions: No Delusion Type: Other (mildly vigilant) Suicidal: Ideation (denies) Homicidal: Ideation (deny) Insight/Judgment Very poor Labs Test 08/22/16 09:24 Sodium Level 142 MEQ/L Potassium Level 4.2 MEQ/L Chloride Level 103 MEQ/L Carbon Dioxide Level 29.0 MEQ/L Anion Gap 10 MEQ/L Blood Urea Nitrogen 29 MG/DL Creatinine 1.36 MG/DL Estimat Glomerular Filtration 50 ML/MIN Rate Random Glucose 176 MG/DL Calcium Level 9.3 MG/DL Vitals/IOs Vital Signs Date Time Temp Pulse Resp B/P Pulse Ox O2 Delivery O2 Flow Rate FiO2 08/22/16 10:30 97.2 08/22/16 06:15 100 16 125/72 97 08/18/16 14:27 Room Air Intake and Output 08/21/16 08/21/16 08/22/16 08:00 16:00 00:00 Intake Total 240 ml 360 ml 480 ml Balance 240 ml 360 ml 480 ml Assessment & Plan Problem List: (1) Dementia in other diseases classified elsewhere with behavioral disturbance ICD Code: F02.81 Assessment & Plan Estimated LOS: days patient continues dementia confused with some behavioral issues please medication adjustment above Justification for Cont. Inpt. At this time patient decompensate the placed at a lower level of care Discharge Planning To be determined Request HC Surrog/Guard Advoc?: Yes Jeovanny Stewart MD Aug 22, 2016 12:33
[2016-08-22 14:41] VITALS: PULSE 77
--- NOTE | 2016-08-22 15:01 | HHI.PR ---
Subjective Remarks Follow-up visit dementia, coronary artery disease, hypertension, history of CVA currently on Eliquis, diabetes, BPH, questionable seizure disorder. Patient seen and examined today. States his doing okay. And went back to sleep. As per staff, daughter was there earlier in states her concern about patient having no pedal pulses. Pedal pulses were checked and is positive for both sides tibialis anterior and dorsalis pedis. Denies pain or discomfort, chest pain, palpitations. Objective Vitals Vital Signs Date Time Temp Pulse Resp B/P Pulse Ox O2 Delivery O2 Flow Rate FiO2 08/22/16 14:41 77 08/22/16 10:30 97.2 08/22/16 06:15 97.5 100 16 125/72 97 08/22/16 04:47 97.5 100 16 125/72 97 08/21/16 22:12 68 16 159/63 I/O 08/21/16 08/21/16 08/21/16 08/22/16 08/22/16 08/22/16 07:00 15:00 23:00 07:00 15:00 23:00 Intake Total 0 ml 600 ml 480 ml 960 ml Balance 0 ml 600 ml 480 ml 960 ml Intake Oral 0 ml 600 ml 240 ml 960 ml Oral Supplement 240 ml # Voids 2 1 Result Diagram: 08/19/16 1134 08/22/16 0924 Imaging Last Impressions Lower Extremity Ultrasound 08/20/16 0000 Signed Impressions: Service Date/Time: Friday, August 19, 2016 19:57 - CONCLUSION: 1. No evidence of deep venous thrombosis. 2. Small to moderate size Gao's cyst left popliteal fossa. Clayton Greer MD Objective Remarks GENERAL: This is a well-nourished, well-developed patient, in no apparent distress. SKIN: Warm and dry. HEENT: Normocephalic. Pupils equal round and reactive. Nose without bleeding. Airway patent. NECK: Trachea midline. No JVD. Supple. CARDIOVASCULAR: Regular rate and rhythm without murmurs, gallops, or rubs. RESPIRATORY: Clear to auscultation. Breath sounds equal bilaterally. No wheezes , rales, or rhonchi. GASTROINTESTINAL: Abdomen soft, non-tender, nondistended. Bowel Sounds normoactive x4. MUSCULOSKELETAL: Extremities without clubbing, cyanosis, bilateral lower extremity +2 edema. NEUROLOGICAL: Awake and alert. Oriented to place, person. Bilateral lower extremity weakness. Normal speech. A/P Problem List: (1) History of dementia ICD Code: Z86.59 Status: Acute (2) CVA (cerebral vascular accident) ICD Code: I63.9 Status: Acute (3) HTN (hypertension) ICD Code: I10 Status: Acute Assessment and Plan 81-year-old male with past medical history of dementia, coronary artery disease , hypertension, history of CVA currently on Eliquis, diabetes, BPH and possible seizure disorder who was brought into the ED under Gao act and [facility] Patient's been admitted to psychiatric and it hospitalist services have been consulted for medical management. Dementia with behavioral disturbances - Management per psychiatric team - On Memantine 10mg BID, Seroquel, Zyprexa Coronary artery disease Hypertension, accelerated Atrial fibrillation - Cardiology services consulted recommended to avoid medications that could prolong QTc - Continue home antihypertensives - Lisinopril 40mg daily, Amlodipine 5mg daily. Increase as needed - Clonidine prn - Continue Eliquis - Improving BP trend. Episode of tachycardia but during exam patient's heart rate is in the 60s 70s. Acute kidney injury on chronic kidney disease - Encourage by mouth fluid hydration - Monitor creatinine trend Bilateral lower extremity edema - Elevate bilateral lower extremity - Poor mobility - US Doppler negative for DVT Hyperlipidemia - Patient is allergic to HMG CoA reductase inhibitors - May start fish oil, [place] 3 and Zetia - May benefit with PCSK9 inhibitors - Evolocumab, alirocumab. Will need to follow-up with primary care doctor. History of CVA - Patient denies residual weakness - Continue home Eliquis - Patient witnessed having some difficulty with ambulation, appears unsteady on his feet. - Followed by physical therapy DM 2 - Hemoglobin A1c 6.5. Controlled - Continue metformin - Accu-Cheks - Insulin sliding scale Questionable history of seizure disorder - Patient denies - Continue home dose of valproic acid Vitamin D insufficiency - Start vitamin D supplementation - Repeat vitamin D levels in 3 months as an outpatient BPH - Continue home dose of tamsulosin DVT prophylaxis - Ambulation Discussed with patient, nursing, Dr. Marcos Lopez from Hospitalist standpoint. We will sign off. Reconsult as needed. Juan Manuel Christianson 30, 2017 15:01
[2016-08-22] MEDS: OLANZapine ODT 5 MG TAB PO SCH (16:00)
[2016-08-22 17:59] VITALS: BP 176/77; PULSE 96; RESP 18; TEMP 98.7; O2SAT 96
[2016-08-22 21:28] VITALS: BP 152/76; PULSE 85; RESP 18; TEMP 99.5; O2SAT 96
[2016-08-22] MEDS: TAMSULOSIN HCL 0.4 MG CAP PO SCH (21:51)
[2016-08-22] MEDS: QUEtiapine FUMARATE 100 MG TAB PO SCH (21:51)
[2016-08-23 06:02] VITALS: BP 172/96; PULSE 72; RESP 18; TEMP 98; O2SAT 95
[2016-08-23] MEDS: GEMFIBROZIL 600 MG TAB PO SCH ×2 (06:30→17:11)
[2016-08-23] MEDS: INSULIN ASPART SUPPLEMENTAL SCALE SQ SCH ×4 (06:31→20:17)
[2016-08-23 08:45] VITALS: BP 160/77
[2016-08-23] MEDS: DIVALPROEX SODIUM E.R. 250 MG TAB PO SCH ×2 (09:21→20:38)
[2016-08-23] MEDS: MEMANTINE HCL 10 MG TAB PO SCH ×2 (09:21→20:38)
[2016-08-23] MEDS: amLODIPine BESYLATE 5 MG TAB PO SCH (09:21)
[2016-08-23] MEDS: metFORMIN HCL 500 MG TAB PO SCH ×2 (09:21→17:12)
[2016-08-23] MEDS: APIXABAN 5 MG TABLET PO SCH ×2 (09:22→20:38)
[2016-08-23] MEDS: LISINOPRIL 20 MG TAB PO SCH (09:22)
[2016-08-23] MEDS: OLANZapine ODT 5 MG TAB PO SCH ×2 (09:23→17:12)
--- NOTE | 2016-08-23 13:03 | HHI.PYPN ---
Subjective Remarks Patient was seen and case discussed with nursing. Blood pressures have been elevated and medicine is following the patient and we'll round on him today. There are no murmurs reviewed where the cardiac service recommended discontinuation of Q-T prolonging agents. Looking at his medication list Seroquel could prolong QT and will be held and an additional dose of Zyprexa will be given instead at night. Patient is sleeping well per nursing. He is alert and oriented 1. Somewhat internally preoccupied. He is able to name all the food objects on his plate. Objective Alert: Yes [place]: Person (vaguely) Mood: Anxious (mildly) Affect: Restricted (slightly) Memory Intact: Comment (poor) Hallucinations: Other (denies) Delusions: No Delusion Type: Other (mildly vigilant) Suicidal: Ideation (denies) Homicidal: Ideation (deny) Insight/Judgment Poor Vitals/IOs Vital Signs Date Time Temp Pulse Resp B/P Pulse Ox O2 Delivery O2 Flow Rate FiO2 08/23/16 08:45 160/77 08/23/16 06:02 98.0 72 18 95 Intake and Output 08/22/16 08/22/16 08/23/16 08:00 16:00 00:00 Intake Total 960 ml 960 ml Balance 960 ml 960 ml Assessment & Plan Problem List: (1) Dementia in other diseases classified elsewhere with behavioral disturbance ICD Code: F02.81 Assessment & Plan See history of present illness Justification for Cont. Inpt. Patient will decompensate in a less restrictive setting Request HC Surrog/Guard Advoc?: Yes Manuel Walton DO Aug 23, 2016 13:03
[2016-08-23 18:38] VITALS: BP 121/73; PULSE 86; RESP 18; TEMP 97.9; O2SAT 96
[2016-08-23] MEDS: OLANZapine 5 MG TAB PO SCH (20:38)
[2016-08-23] MEDS: TAMSULOSIN HCL 0.4 MG CAP PO SCH (20:38)
[2016-08-24] MEDS: GEMFIBROZIL 600 MG TAB PO SCH ×2 (06:20→17:18)
[2016-08-24 06:26] VITALS: BP 109/57; PULSE 72; RESP 18; TEMP 97.9; O2SAT 98
[2016-08-24] MEDS: INSULIN ASPART SUPPLEMENTAL SCALE SQ SCH ×4 (06:32→21:00)
[2016-08-24] MEDS: APIXABAN 5 MG TABLET PO SCH ×2 (08:39→21:02)
[2016-08-24] MEDS: amLODIPine BESYLATE 5 MG TAB PO SCH (08:39)
[2016-08-24] MEDS: MEMANTINE HCL 10 MG TAB PO SCH ×2 (08:39→21:02)
[2016-08-24] MEDS: metFORMIN HCL 500 MG TAB PO SCH ×2 (08:39→17:18)
[2016-08-24] MEDS: LISINOPRIL 20 MG TAB PO SCH (08:40)
[2016-08-24] MEDS: OLANZapine ODT 5 MG TAB PO SCH ×2 (08:40→17:19)
[2016-08-24] MEDS: DIVALPROEX SODIUM E.R. 250 MG TAB PO SCH ×2 (08:40→21:02)
--- NOTE | 2016-08-24 13:01 | HHI.PYPN ---
Subjective Remarks Patient was seen and case discussed with nursing. Hypertension has resolved. Per nursing, he has been combative with the sitter this morning. Patient has been sleepy throughout the day and when asked about it he says that he is bored. Alert and oriented 2. Not aggressive or labile. Denies psychosis. Compliant with medications Objective Alert: Yes [place]: Person (vaguely), Place Mood: Anxious (mildly) Affect: Blunted Memory Intact: Comment (poor) Hallucinations: Other (denies) Delusions: No Delusion Type: Other (mildly vigilant) Suicidal: Ideation (denies) Homicidal: Ideation (deny) Insight/Judgment Poor Vitals/IOs Vital Signs Date Time Temp Pulse Resp B/P Pulse Ox O2 Delivery O2 Flow Rate FiO2 08/24/16 06:26 97.9 72 18 109/57 98 Intake and Output 08/23/16 08/23/16 08/24/16 08:00 16:00 00:00 Intake Total 240 ml 840 ml Balance 240 ml 840 ml Assessment & Plan Problem List: (1) Dementia in other diseases classified elsewhere with behavioral disturbance ICD Code: F02.81 Assessment & Plan Continue current treatment plan Justification for Cont. Inpt. Patient will decompensate in a less restrictive setting Request HC Surrog/Guard Advoc?: Yes Manuel Walton DO Aug 24, 2016 13:01
[2016-08-24 18:23] VITALS: BP 114/67; PULSE 70; RESP 17; TEMP 97.3; O2SAT 98
[2016-08-24] MEDS: OLANZapine 5 MG TAB PO SCH (21:02)
[2016-08-24] MEDS: TAMSULOSIN HCL 0.4 MG CAP PO SCH (21:03)
[2016-08-25] MEDS: ACETAMINOPHEN 325 MG TAB PO PRN ×2 (00:57→23:20)
[2016-08-25 00:58] VITALS: BP 172/92
[2016-08-25 05:45] VITALS: BP 109/55; PULSE 58; RESP 18; TEMP 97.9; O2SAT 94
[2016-08-25] MEDS: INSULIN ASPART SUPPLEMENTAL SCALE SQ SCH ×4 (06:38→20:33)
[2016-08-25] MEDS: GEMFIBROZIL 600 MG TAB PO SCH ×2 (06:38→17:07)
--- NOTE | 2016-08-25 09:06 | HHI.PYPN ---
Subjective Remarks Patient seen in day room with nurse Jyothi. Compliant medication. Patient continues diffusely confused needing occasional interventions but no significant problem at this time Review of Systems Except as stated in HPI: all other systems reviewed are Neg Objective Alert: Yes [place]: Person (vaguely), Place Mood: Anxious (mildly) Affect: Blunted Memory Intact: Comment (poor) Hallucinations: Other (denies) Delusions: No Delusion Type: Other (mildly vigilant) Suicidal: Ideation (denies) Homicidal: Ideation (deny) Insight/Judgment Poor Vitals/IOs Vital Signs Date Time Temp Pulse Resp B/P Pulse Ox O2 Delivery O2 Flow Rate FiO2 08/25/16 05:45 97.9 58 18 109/55 94 Intake and Output 08/24/16 08/24/16 08/25/16 08:00 16:00 00:00 Intake Total 240 ml 720 ml Balance 240 ml 720 ml Assessment & Plan Problem List: (1) Dementia in other diseases classified elsewhere with behavioral disturbance ICD Code: F02.81 Assessment & Plan Estimated LOS: days patient continues confused demented attempt needing intervention by the staff but overall no significant behavioral problem Justification for Cont. Inpt. At this time patient will decompensate with placed in a lower level of care Discharge Planning To be determined Request HC Surrog/Guard Advoc?: Yes Jeovanny Stewart MD Aug 25, 2016 09:05
[2016-08-25 09:22] VITALS: BP 140/61; PULSE 81
[2016-08-25] MEDS: LISINOPRIL 20 MG TAB PO SCH (09:24)
[2016-08-25] MEDS: OLANZapine ODT 5 MG TAB PO SCH ×2 (09:24→17:10)
[2016-08-25] MEDS: MEMANTINE HCL 10 MG TAB PO SCH ×2 (09:24→20:32)
[2016-08-25] MEDS: DIVALPROEX SODIUM E.R. 250 MG TAB PO SCH ×2 (09:24→20:32)
[2016-08-25] MEDS: metFORMIN HCL 500 MG TAB PO SCH ×2 (09:24→17:10)
[2016-08-25] MEDS: amLODIPine BESYLATE 5 MG TAB PO SCH (09:24)
[2016-08-25] MEDS: APIXABAN 5 MG TABLET PO SCH ×2 (09:24→20:33)
[2016-08-25 18:00] VITALS: BP 108/84; PULSE 80; RESP 16; TEMP 97.8; O2SAT 95
[2016-08-25] MEDS: OLANZapine 5 MG TAB PO SCH (20:32)
[2016-08-25] MEDS: TAMSULOSIN HCL 0.4 MG CAP PO SCH (20:32)
[2016-08-26] MEDS ORDERED: OLANZapine IM 10 MG VIAL IM ONE (02:15)
[2016-08-26 05:51] VITALS: BP 174/94; PULSE 100; RESP 18; O2SAT 94
[2016-08-26] MEDS: GEMFIBROZIL 600 MG TAB PO SCH ×2 (05:54→16:00)
[2016-08-26] MEDS: INSULIN ASPART SUPPLEMENTAL SCALE SQ SCH ×4 (05:54→21:42)
[2016-08-26] MEDS: DIVALPROEX SODIUM E.R. 250 MG TAB PO SCH ×2 (09:18→20:49)
[2016-08-26] MEDS: metFORMIN HCL 500 MG TAB PO SCH ×2 (09:18→17:53)
[2016-08-26] MEDS: APIXABAN 5 MG TABLET PO SCH ×2 (09:18→20:49)
[2016-08-26] MEDS: LISINOPRIL 20 MG TAB PO SCH (09:18)
[2016-08-26] MEDS: MEMANTINE HCL 10 MG TAB PO SCH ×2 (09:18→20:49)
[2016-08-26] MEDS: amLODIPine BESYLATE 5 MG TAB PO SCH (09:18)
[2016-08-26] MEDS: OLANZapine ODT 5 MG TAB PO SCH ×2 (09:19→16:00)
--- NOTE | 2016-08-26 10:38 | HHI.PYPN ---
Subjective Remarks Patient seen in day room with medical student Mat and nurse Jyothi, chart review, patient compliant medication. Patient did get some [id number] behaviors towards the middle of the night necessitating an ETO of Zyprexa. This morning patient calm quiet continues confused though did eat breakfast well. After meeting with patient I did meet with patient's daughter and her along with counselor Leslie and medical student Mat. We did discuss treatment diagnosis discharge plans and medication also did discuss the disease process in general. Daughter states she still wishes, with the consensus of her siblings, that he remain a full code will also increase the at bedtime Zyprexa 10 mg Review of Systems Except as stated in HPI: all other systems reviewed are Neg Objective Alert: Yes [place]: Person (vaguely), Place Mood: Anxious (mildly) Affect: Blunted Memory Intact: Comment (poor) Hallucinations: Other (denies) Delusions: No Delusion Type: Other (mildly vigilant) Suicidal: Ideation (denies) Homicidal: Ideation (deny) Insight/Judgment Very poor Vitals/IOs Vital Signs Date Time Temp Pulse Resp B/P Pulse Ox O2 Delivery O2 Flow Rate FiO2 08/26/16 05:51 100 18 174/94 94 08/25/16 18:00 97.8 Intake and Output 08/25/16 08/25/16 08/26/16 08:00 16:00 00:00 Intake Total 360 ml 480 ml 3240 ml Balance 360 ml 480 ml 3240 ml Assessment & Plan Problem List: (1) Dementia in other diseases classified elsewhere with behavioral disturbance ICD Code: F02.81 Assessment & Plan Patient continues demented and confused, was increased behavioral issues late- night into early a.m. See medication adjustment above Estimated LOS: days Justification for Cont. Inpt. At this time patient would deteriorate in place to the lower level of care Discharge Planning To be determined Request HC Surrog/Guard Advoc?: Yes Jeovanny Stewart MD Aug 26, 2016 10:38
[2016-08-26 18:43] VITALS: BP 143/63; PULSE 64; RESP 18; O2SAT 97
[2016-08-26] MEDS: TAMSULOSIN HCL 0.4 MG CAP PO SCH (20:49)
[2016-08-26] MEDS: OLANZapine 5 MG TAB PO SCH (20:50)
[2016-08-27 04:59] VITALS: BP 160/64; PULSE 83; RESP 15; TEMP 97.5; O2SAT 96
[2016-08-27] MEDS: GEMFIBROZIL 600 MG TAB PO SCH (06:39)
[2016-08-27] MEDS: INSULIN ASPART SUPPLEMENTAL SCALE SQ SCH ×4 (06:58→21:00)
[2016-08-27] MEDS ORDERED: ONDANSETRON ODT 4 MG TAB PO PRN ×2 (08:00→15:15)
[2016-08-27] MEDS: OLANZapine ODT 5 MG TAB PO SCH ×2 (08:00→14:50)
[2016-08-27] MEDS: LISINOPRIL 20 MG TAB PO SCH (09:00)
[2016-08-27] MEDS: DIVALPROEX SODIUM E.R. 250 MG TAB PO SCH ×2 (09:00→22:26)
[2016-08-27] MEDS: amLODIPine BESYLATE 5 MG TAB PO SCH (09:00)
[2016-08-27] MEDS: MEMANTINE HCL 10 MG TAB PO SCH ×2 (09:00→22:26)
[2016-08-27] MEDS: metFORMIN HCL 500 MG TAB PO SCH ×2 (09:00→18:00)
[2016-08-27] MEDS: APIXABAN 5 MG TABLET PO SCH ×2 (09:00→22:26)
--- NOTE | 2016-08-27 10:34 | HHI.PYPN ---
Subjective Remarks Patient seen in day room with floor staff, patient alert diffusely confused disoriented though no behavior problems at this time. Compliant medications. For now continue treatment Review of Systems Except as stated in HPI: all other systems reviewed are Neg Objective Alert: Yes [place]: Person (vaguely), Place Mood: Anxious (mildly) Affect: Blunted Memory Intact: Comment (poor) Hallucinations: Other (denies) Delusions: No Delusion Type: Other (mildly vigilant) Suicidal: Ideation (denies) Homicidal: Ideation (deny) Insight/Judgment Very poor Vitals/IOs Vital Signs Date Time Temp Pulse Resp B/P Pulse Ox O2 Delivery O2 Flow Rate FiO2 08/27/16 04:59 97.5 83 15 160/64 96 Intake and Output 08/26/16 08/26/16 08/27/16 08:00 16:00 00:00 Intake Total 240 ml 1800 ml Balance 240 ml 1800 ml Assessment & Plan Problem List: (1) Dementia in other diseases classified elsewhere with behavioral disturbance ICD Code: F02.81 Assessment & Plan Estimated LOS: days patient continues demented confused, though no behavior problems at this time. Compliant medication Justification for Cont. Inpt. At this time patient will decompensate if placed in a lower level of care Discharge Planning To be determined Request HC Surrog/Guard Advoc?: Yes Jeovanny Stewart MD Aug 27, 2016 10:34
[2016-08-27 14:33] LABS: C. DIFF EPI 027 PRESUMPTIVE POSITIVE (NEGATIVE); C. DIFF TOXIN PCR POSITIVE (NEGATIVE)
[2016-08-27 16:25] LABS: AUTOMATED NEUTROPHIL # 11.1 TH/MM3 (1.8-7.7); BASOPHIL % 0.3 % (0.0-2.0); EOSINOPHIL # 0.3 TH/MM3 (0-0.4); EOSINOPHIL % 2.4 % (0.0-4.0); HEMO FLAGS DIFF FINAL; LYMPH % 4.3 % (9.0-44.0); LYMPHOCYTE # 0.6 TH/MM3 (1.0-4.8); MEAN CORPUSCULAR HGB CONC 32.3 % (32.0-36.0); MONO % 8.2 % (0.0-8.0); NEUT % 84.8 % (16.0-70.0); PLATELET COUNT 228 TH/MM3 (150-450); RED BLOOD COUNT 4.38 MIL/MM3 (4.50-5.90); RED CELL DISTRIBUTION WIDTH 15.4 % (11.6-17.2); WHITE BLOOD COUNT 13.1 TH/MM3 (4.0-11.0)
[2016-08-27 16:47] LABS: ALT (GPT) 19 U/L (12-78); ANION GAP 11 MEQ/L (5-15); AST (GOT) 19 U/L (15-37); BICARBONATE 23.5 MEQ/L (21.0-32.0); BLOOD UREA NITROGEN 42 MG/DL (7-18); CHLORIDE 107 MEQ/L (98-107); GLOMERULAR FILTRATION RATE 31 ML/MIN (>89); SODIUM (NA) 141 MEQ/L (136-145)
[2016-08-27 16:48] LABS: ALKALINE PHOSPHATASE 86 U/L (45-117); TOTAL BILIRUBIN ADULT 0.8 MG/DL (0.2-1.0)
[2016-08-27 17:01] LABS: POTASSIUM 5.5 MEQ/L (3.5-5.1)
[2016-08-27] MEDS ORDERED: metroNIDAZOLE 500 MG TAB PO SCH (18:00)
[2016-08-27] MEDS: OLANZapine 5 MG TAB PO SCH (22:26)
[2016-08-27] MEDS: TAMSULOSIN HCL 0.4 MG CAP PO SCH (22:26)
--- NOTE | 2016-08-28 08:00 | HHI.DS ---
Psychiatry Discharge Summary Inpatient Psychiatric care?: Yes Advance Directive: No Reason Not Provided: Due to Patient Condition Mental Health AdvanceDirective: Yes Health Care Proxy: Yes Admission Admission Date Aug 18, 2016 at 11:09 Admission Diagnosis: (1) Dementia in other diseases classified elsewhere with behavioral disturbance ICD Code: F02.[address] Ely's H&P: This is an 81-year-old male with a history of dementia, CVA, cardiac disease, diabetes, and recent sundowning. Apparently the patient was recently at [facility] and last night he became agitated, belligerent and physically aggressive towards staff members. As a result of his violence and attempted violence toward staff members, he was Gao acted. At this time the patient is calm, pleasant and cooperative. He does not have a complete memory of what occurred last night. He is telling this physician that he was in some way disrespected by staff. However, this physician spoke with the patient's daughter, who is an emergency room nurse. The daughter indicates that her father sundown's rather badly in the late afternoon and early evening. At these times he becomes very confused, paranoid and aggressive towards others. He was recently treated at [facility] and had significant cardiac reactions to Haldol and Ativan, substantially altering his blood pressure, heart rate, etc. and necessitating intensive care monitoring. He was eventually placed on Seroquel 50 mg 3 times a day and Depakote 250 mg 3 times a day. Unfortunately, it appears these medicines are not working as the patient continues to sundown with violence towards others. He does not have a history of alcoholism or drug abuse. However, his daughter states since his cerebral vascular accident, he has been much more difficult to manage. On my examination today: Patient seen and examined. Chart reviewed. Case discussed with nursing staff. On my examination today, the patient is presently calm but confused. See full mental status testing below. He is unable to say why he came into the hospital. He is presently somewhat guarded. He denies feeling depressed. He denies any hallucinations. Denies any SI or HI. Psychiatric interview is limited, I suspect from a combination of his guardedness and also cognitive impairment. Past psychiatric history: The patient is likely an unreliable historian but denies a history of inpatient or other psychiatric treatment. Family history: The patient denies any family history of mental illness. Chemical dependency history: The patient denies any abuse of drugs or alcohol. Social history: The patient reports that he is with 3 children. 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 He was in the [employer] and had an honorable discharge. Tobacco Use In Past 30 Days: Refused To Answer Alcohol Use: Never Hospital Course Patient's behavior through his stay thus at times somewhat labile needing interventions primarily towards late afternoon into late evening. He remained confused and disoriented. However there is noted to have some diarrheal episodes his stool tested positive for C. difficile. Your showing some kidney failure issues. Through seen by medicine service. Patient was discharged [facility] and admitted directly to the medical floor for further treatment of his C. difficile. Patient was scheduled to go to [facility] on 08/28 will discuss this with the [facility] and probably have that issue continued until his medical issues resolve Results Blood Pressure 160 / 64 Vital Signs Date Time Temp Pulse Resp B/P Pulse Ox O2 Delivery O2 Flow Rate FiO2 08/27/16 04:59 97.5 83 15 160/64 96 Laboratory Tests Test 08/27/16 08/27/16 00:00 16:07 Stool C. difficile Toxin (PCR) POSITIVE (NEGATIVE) Stl C. difficile Toxin PRESUMPTIVE Epiderm 027 POSITIVE (NEGATIVE) White Blood Count 13.1 TH/MM3 (4.0-11.0) Red Blood Count 4.38 MIL/MM3 (4.50-5.90) Neutrophils (%) (Auto) 84.8 % (16.0-70.0) Lymphocytes (%) (Auto) 4.3 % (9.0-44.0) Monocytes (%) (Auto) 8.2 % (0.0-8.0) Neutrophils # (Auto) 11.1 TH/MM3 (1.8-7.7) Lymphocytes # (Auto) 0.6 TH/MM3 (1.0-4.8) Monocytes # (Auto) 1.1 TH/MM3 (0-0.9) Potassium Level 5.5 MEQ/L (3.5-5.1) Blood Urea Nitrogen 42 MG/DL (7-18) Creatinine 2.07 MG/DL (0.60-1.30) Estimat Glomerular Filtration 31 ML/MIN (>89) Rate Random Glucose 164 MG/DL (74-106) Albumin 2.9 GM/DL (3.4-5.0) Summary of Procedures None done Imaging Last Impressions Lower Extremity Ultrasound 08/20/16 0000 Signed Impressions: Service Date/Time: Friday, August 19, 2016 19:57 - CONCLUSION: 1. No evidence of deep venous thrombosis. 2. Small to moderate size Gao's cyst left popliteal fossa. Clayton Greer MD Pending results at discharge: No Medications # of Antipsychotic meds at D/C: 1 Approp Antipsych med options 1 - Minimum of three failed multiple trials of monotherapy. 2 - Documented plan to taper to monotherapy due to previous use of multiple meds OR cross-taper in progress at D/C. 3 - Documentation of augmentation of Clozapine. 4 - Justification other than those listed in allowable values 1-3, document here : Discharge Discharge Date: Aug 27, 2016 Discharge Diagnosis: (1) Dementia in other diseases classified elsewhere with behavioral disturbance Diagnosis: Principal ICD Code: F02.81 (2) C. difficile diarrhea Diagnosis: Principal ICD Code: A04.7 Mental Status Exam at Disch Patient alert confused and disorganized elderly white male his normal active, patient mood is irritable labile with increase range intensity was affect. Speech is markedly disorganized tangential circumstantial, no auditory or visual hallucinations noted no delusions noted insight and judgment is very poor cognition is markedly restricted Pt Condition on Discharge: Deteriorating Discharge Disposition: Trnsfr to Other Facility (patient discharge [facility] patient directly admitted to medical unit [facility]) Discharge Instructions Diet Instructions: As Tolerated, No Restrictions Scheduled Appointment: follow-up inpatient medical unit [facility] Discharge Time <= 30 minutes Discharge/Advance Care Plan Health Problems: (1) Dementia in other diseases classified elsewhere with behavioral disturbance Goals to promote your health * To prevent worsening of your condition and complications * To maintain your health at the optimal level Directions to meet your goals Take your medications as prescribed Follow your dietary instruction Follow activity as directed Keep your appointments as scheduled Take your immunizations and boosters as scheduled If your symptoms worsen call your PCP, if no PCP go to Urgent Care Center or Emergency Room For 15/09 questions related to your inpatient stay or results of tests pending at discharge, please contact Dr. Jeovanny Stewart at Smoking is Dangerous to Your Health. Avoid second hand smoking Jeovanny Stewart MD Aug 28, 2016 08:00
== END 2016-08-27 22:59 | disposition short-term general hospital (02) | DRG 884 ==
LOC: NEPC 01:35 → NEDA 11:09 → H250 16:40
PROVIDERS: ADMIT Psychiatry & Neurology Psychiatry; ATTEND Psychiatry & Neurology Psychiatry
DX: F03.91 Unspecified dementia, unspecified severity, with behavioral disturbance (principal); N17.9 Acute kidney failure, unspecified; A04.7 Enterocolitis due to Clostridium difficile; E11.22 Type 2 diabetes mellitus with diabetic chronic kidney disease; I48.91 Unspecified atrial fibrillation; I69.311 Memory deficit following cerebral infarction; I12.9 Hypertensive chronic kidney disease with stage 1 through stage 4 chronic kidney disease, or unspecified chronic kidney disease; N18.9 Chronic kidney disease, unspecified; N40.0 Benign prostatic hyperplasia without lower urinary tract symptoms; W01.0XXA Fall on same level from slipping, tripping and stumbling without subsequent striking against object, initial encounter; Y93.9 Activity, unspecified; Y92.238 Other place in hospital as the place of occurrence of the external cause; Y99.9 Unspecified external cause status; I25.10 Atherosclerotic heart disease of native coronary artery without angina pectoris; Z79.02 Long term (current) use of antithrombotics/antiplatelets; R00.0 Tachycardia, unspecified; E78.5 Hyperlipidemia, unspecified; E55.9 Vitamin D deficiency, unspecified; Z95.1 Presence of aortocoronary bypass graft
CPT/HCPCS: 80048; 80053; 80061; 80307; 81001; 82306; 82607; 82948; 83036; 83690; 84443; 85007; 85025; 85027; 85610; 85730; 87015; 87493; 93005; 93970; 96360; J1200; J1815; J2060; J3486; J7050

== ENCOUNTER 2016-08-27 23:00 | Inpatient (IN) | payer OTHER, MEDICARE ==
[~2016-08-27] VITALS: Ht 174 cm; Wt 80.8 kg
[~2016-08-27 23:00] MED LIST: AMLO2.5T PO; APIX5TAB PO; DIVA250T PO; HYDR-3800; LISI40TA PO; MEMA1TAB2 PO; METF1000 PO; QUET5TAB PO; TAMS0.4C4 PO
[2016-08-27] MEDS ORDERED: BISACODYL 10 MG SUPP RECTAL PRN (23:45)
[2016-08-27] MEDS ORDERED: MAGNESIUM HYDROXIDE SUSP 30 ML CUP PO PRN (23:45)
[2016-08-27] MEDS ORDERED: NALOXONE HCL 0.4 MG/ML AMP IV PRN (23:45)
[2016-08-27] MEDS ORDERED: SENNOSIDES 8.6 MG TAB PO PRN (23:45)
[2016-08-27] MEDS ORDERED: SODIUM CHLORIDE 0.9% FLUSH 10 ML FLUSH IV FLUSH PRN (23:45)
[2016-08-27] MEDS ORDERED: ONDANSETRON HCL 4 MG/2 ML VIAL IVP PRN (23:45)
[2016-08-27] MEDS ORDERED: HEPARIN SODIUM - SQ 10,000 UNITS/ML VIAL SQ SCH (23:45)
[2016-08-27] MEDS ORDERED: LACTULOSE SYRUP 20 GM/30 ML CUP PO PRN (23:45)
--- NOTE | 2016-08-27 23:48 | HHI.HP ---
[facility] Service [place] [facility] Primary Care Physician Traci Doty Do, MD Admission Diagnosis Diagnoses: Travel History International Travel<30 Days: No Contact w/Intl Traveler <30 Da: No History of Present Illness 81-year-old male with a history of dementia, coronary artery disease, hypertension, history of CVA on Eliquis, diabetes, BPH, seizure disorder, who was initially brought into ED under Gao act. Patient seen this afternoon around 4 PM. Patient has developed profuse diarrhea. History limited as Patient somnolent after antipsychotic. He denies any pain. Nursing reports he appears at mental baseline. Review of Systems attempted, and difficult secondary to somnolence Past Family Social History Past Medical History Hypertension Coronary artery disease Diabetes History of CVA and Eliquis Dementia BPH Past Surgical History patient previously denied any surgical history. Allergies: Coded Allergies: Ativan (Verified Allergy, Severe, 08/22/16) Benadryl (Verified Allergy, Severe, 08/22/16) Haldol (Verified Allergy, Severe, 08/22/16) HMG-CoA Reductase Inhibitors (Verified Allergy, Unknown, 08/18/16) Family History physical history secondary to somnolence, however patient previously denied any family history. Social History no history of tobacco, alcohol or illicit drug use Physical Exam Physical Exam GENERAL: 81-year-old male, sitting in recliner. Sleeping, wakes up for exam. Responds to verbal stimuli, moves all extremities, however with disjointed Responses which are largely unhelpful. SKIN: No rashes, ecchymoses or lesions. Cool and dry. HEAD: Atraumatic. Normocephalic. No temporal or scalp tenderness. EYES: Pupils equal round and reactive. Extraocular motions intact. No scleral icterus. No injection or drainage. ENT: Nose without bleeding, purulent drainage or septal hematoma. Throat without erythema, tonsillar hypertrophy or exudate. Uvula midline. Airway patent. NECK: Trachea midline. No JVD or lymphadenopathy. Supple, nontender, no meningeal signs. CARDIOVASCULAR: Regular rate and rhythm without murmurs, gallops, or rubs. RESPIRATORY: Clear to auscultation. Breath sounds equal bilaterally. No wheezes , rales, or rhonchi. GASTROINTESTINAL: Abdomen soft, non-tender, nondistended. No hepato-splenomegaly , or palpable masses. No guarding. MUSCULOSKELETAL: Extremities without clubbing, cyanosis, or edema. No joint tenderness, effusion, or edema noted. No calf tenderness. Negative Homans sign bilaterally. NEUROLOGICAL: somnolent, wakes up for exam. Cranial nerves II through XII intact. patient moves all extremities. slow speech Assessment and Plan Assessment and Plan //Severe C. difficile diarrhea. Acute. With leukocytosis and acute kidney injury. Admit to Med[facility]. Treated with IV metronidazole and vancomycin. IV fluids. Continue to monitor. //Acute kidney injury. Creatinine 2.1. Likely secondary to dehydration from C. difficile colitis. IV hydration //Leukocytosis. 13.1. Likely secondary to C. difficile colitis. Treat as above. //Hyperkalemia. Acute. Potassium 5.5. EKG pending. Will be on telemetry. Expect to improve with hydration. //Dementia. Continue home medications. Restraints as necessary. //Diabetes mellitus. Recent A1c 6.5. Glucose acceptable. Renal diet, however considered starting on diabetic diet. //Hyperkalemia. 5.5. Slight hemolysis noted. Expect to improve with fluids //Possible history of seizure disorder. No acute events noted. Continue antiepileptics. //Coronary artery disease //Hypertension -Hold JEFF inhibitor secondary to a acute kidney injury. Add back blood pressure medications as necessary. Continue anticoagulation.. //Vitamin D deficiency. Diagnosed in psychiatry. Will need to be started back on vitamin D and monitored //Prophylaxis. On therapeutic Eliqis Discussed Condition With patient, nurse, psychiatrist. Physician Certification 2 Midnight Certification Type: Admission for Inpatient Services Order for Inpatient Services The services are ordered in accordance with Medicare regulations or non- Medicare payer requirements, as applicable. In the case of services not specified as inpatient-only, they are appropriately provided as inpatient services in accordance with the 2-midnight benchmark. Estimated LOS (days): 2 days is the estimated time the patient will need to remain in the hospital, assuming treatment plan goals are met and no additional complications. Post-Hospital Plan: Not yet determined Philip Clark MD Aug 27, 2016 23:48
[2016-08-28] VITALS (10 sets, daily range): BP systolic 0–164; BP diastolic 55–80; PULSE 49–77; RESP 16–20; TEMP 97.3–98.1; O2SAT 96–99
[2016-08-28] MEDS: SODIUM CHLOR 0.9% 1000 ML INJ 1,000 ML IV SCH ×3 (01:22→17:41)
[2016-08-28] MEDS: metroNIDAZOLE 500 MG INJ 100 ML IV SCH ×3 (01:22→17:35)
[2016-08-28 08:12] LABS: BASOPHIL % 0.3 % (0.0-2.0); EOSINOPHIL # 0.4 TH/MM3 (0-0.4); HEMO FLAGS DIFF FINAL; LYMPHOCYTE # 0.9 TH/MM3 (1.0-4.8); MEAN CELL VOLUME 95.1 FL (80.0-100.0); MEAN CORPUSCULAR HEMOGLOBIN 31.3 PG (27.0-34.0); MEAN CORPUSCULAR HGB CONC 32.8 % (32.0-36.0); MONO % 12.8 % (0.0-8.0); NEUT % 70.9 % (16.0-70.0); PLATELET COUNT 160 TH/MM3 (150-450); RED CELL DISTRIBUTION WIDTH 15.4 % (11.6-17.2); WHITE BLOOD COUNT 8.4 TH/MM3 (4.0-11.0)
[2016-08-28 08:20] LABS: ANION GAP 6 MEQ/L (5-15); AST (GOT) 9 U/L (15-37); BICARBONATE 27.5 MEQ/L (21.0-32.0); BLOOD UREA NITROGEN 45 MG/DL (7-18); CHLORIDE 110 MEQ/L (98-107); GLOMERULAR FILTRATION RATE 44 ML/MIN (>89); POTASSIUM 4.2 MEQ/L (3.5-5.1); SODIUM (NA) 143 MEQ/L (136-145)
[2016-08-28 08:26] LABS: ALKALINE PHOSPHATASE 80 U/L (45-117); ALT (GPT) 15 U/L (12-78); TOTAL BILIRUBIN ADULT 0.5 MG/DL (0.2-1.0)
[2016-08-28] MEDS: DOCUSATE SODIUM 50 MG/SENNA 8.6 MG TAB PO SCH ×2 (09:22→21:00)
[2016-08-28] MEDS: TAMSULOSIN HCL 0.4 MG CAP PO SCH ×3 (09:22→17:36)
[2016-08-28] MEDS: APIXABAN 5 MG TABLET PO SCH ×2 (09:22→22:00)
[2016-08-28] MEDS: MEMANTINE HCL 10 MG TAB PO SCH ×2 (09:22→22:01)
[2016-08-28] MEDS: VANCOMYCIN 500 MG VIAL (FOR ORAL USE ONLY) PO SCH ×4 (09:23→22:00)
[2016-08-28] MEDS: SODIUM CHLORIDE 0.9% FLUSH 10 ML FLUSH IV FLUSH SCH ×2 (09:31→22:01)
[2016-08-28] MEDS: QUEtiapine FUMARATE 25 MG TAB PO SCH ×3 (09:42→17:36)
[2016-08-28] MEDS: DIVALPROEX SODIUM DELAYED RELEASE 250 MG TAB PO SCH ×3 (09:43→17:35)
--- NOTE | 2016-08-28 11:44 | HHI.PR ---
Subjective Remarks Follow-up severe C. difficile diarrhea 08/28/16-patient seen and examined, follow some commands but very limited in his expression. Case discussed with patient's daughter Objective Vitals Vital Signs Date Time Temp Pulse Resp B/P Pulse Ox O2 Delivery O2 Flow Rate FiO2 08/28/16 08:00 97.3 54 18 163/73 96 08/28/16 08:00 67 08/28/16 04:00 97.5 54 20 128/58 98 08/28/16 00:00 98.1 69 20 140/62 97 08/27/16 23:30 Room Air Result Diagram: 08/28/16 0634 08/28/16 0634 Objective Remarks GENERAL: NAD SKIN: Warm and dry. HEAD: Normocephalic. EYES: No scleral icterus. No injection or drainage. NECK: Supple, trachea midline. No JVD or lymphadenopathy. CARDIOVASCULAR: Regular rate and rhythm without murmurs, gallops, or rubs. RESPIRATORY: Breath sounds equal bilaterally. No accessory muscle use. GASTROINTESTINAL: Abdomen soft, non-tender, nondistended. MUSCULOSKELETAL: No cyanosis, or edema. BACK: Nontender without obvious deformity. No CVA tenderness. A/P Problem List: (1) C. difficile diarrhea ICD Code: A04.7 Status: Acute (2) History of dementia ICD Code: Z86.59 Status: Acute Assessment and Plan 81-year-old man with Severe C. difficile diarrhea Treated with IV metronidazole and vancomycin. IV fluids. Continue to monitor. Acute kidney injury. secondary to dehydration from C. difficile colitis. Continue IV fluid hydration and monitor BUN and creatinine Avoid all nephrotoxic drugs Leukocytosis. Likely secondary to C. difficile colitis. Treat as above. Hyperkalemia. Acute. Resolved status post hydration Dementia. Continue home medications. Restraints as necessary. Consult psychiatry Diabetes mellitus Continue insulin sliding scale Hold oral hypoglycemic agents Possible history of seizure disorder. Continue antiepileptics. Coronary artery disease Hypertension Hold JEFF inhibitor secondary to a acute kidney injury. Gave Norvasc 5 mg by mouth 1 now and resume 5 mg daily 08/29/16 Continue anticoagulation.. Vitamin D deficiency. Consider starting vitamin D and monitored Prophylaxis. On therapeutic Brian Pena MD Aug 28, 2016 11:43
[2016-08-28] MEDS ORDERED: GLUCAGON 1 MG/ML VIAL OTHER PRN (12:00)
[2016-08-28] MEDS ORDERED: amLODIPine BESYLATE 5 MG TAB PO ONE (12:00)
[2016-08-28] MEDS ORDERED: DEXTROSE 50% IN WATER 50 ML VIAL(D50) IV PRN (12:00)
[2016-08-28] MEDS: INSULIN ASPART SUPPLEMENTAL SCALE SQ SCH ×2 (17:34→22:05)
--- NOTE | 2016-08-28 18:05 | EKG ---
Date Performed: 08/28/2016 Time Performed: 01:37:16 PTAGE: 81 years EKG: Atrial fibrillation with PVC(s) Indeterminate axis Right bundle branch block Inferior T wav e changes are nonspecific Compared to previous tracing, the PVCs are new. There's been a slowing of t he ventricular response to the atrial fibrillation. Abnormal ECG PREVIOUS TRACING : 08/19/2016 14.40 DOCTOR: Eve Carcamo Interpretating Date/Time 08/28/2016 18:04:52
[2016-08-29 04:40] VITALS: BP 145/70; PULSE 65; RESP 18; TEMP 97.6; O2SAT 94
[2016-08-29] MEDS: SODIUM CHLOR 0.9% 1000 ML INJ 1,000 ML IV SCH ×2 (05:53→15:46)
[2016-08-29] MEDS: INSULIN ASPART SUPPLEMENTAL SCALE SQ SCH ×4 (05:56→22:21)
[2016-08-29 08:00] VITALS: BP 165/69; PULSE 62; RESP 18; TEMP 97; O2SAT 97
[2016-08-29 08:13] LABS: AUTOMATED NEUTROPHIL # 5.2 TH/MM3 (1.8-7.7); BASOPHIL % 0.5 % (0.0-2.0); EOSINOPHIL # 0.4 TH/MM3 (0-0.4); HEMATOCRIT 35.3 % (39.0-51.0); HEMO FLAGS DIFF FINAL; LYMPH % 12.7 % (9.0-44.0); LYMPHOCYTE # 0.9 TH/MM3 (1.0-4.8); MEAN CELL VOLUME 94.5 FL (80.0-100.0); MEAN CORPUSCULAR HEMOGLOBIN 31.3 PG (27.0-34.0); MEAN CORPUSCULAR HGB CONC 33.1 % (32.0-36.0); MONO % 11.2 % (0.0-8.0); NEUT % 70.6 % (16.0-70.0); PLATELET COUNT 162 TH/MM3 (150-450); RED BLOOD COUNT 3.74 MIL/MM3 (4.50-5.90); RED CELL DISTRIBUTION WIDTH 15.2 % (11.6-17.2); WHITE BLOOD COUNT 7.4 TH/MM3 (4.0-11.0)
[2016-08-29 08:48] LABS: BICARBONATE 24.2 MEQ/L (21.0-32.0); POTASSIUM 4.3 MEQ/L (3.5-5.1)
[2016-08-29] MEDS: TAMSULOSIN HCL 0.4 MG CAP PO SCH ×3 (09:21→18:02)
[2016-08-29] MEDS: QUEtiapine FUMARATE 25 MG TAB PO SCH ×3 (09:21→18:02)
[2016-08-29] MEDS: amLODIPine BESYLATE 5 MG TAB PO SCH (09:21)
[2016-08-29] MEDS: APIXABAN 5 MG TABLET PO SCH ×2 (09:21→22:19)
[2016-08-29] MEDS: DOCUSATE SODIUM 50 MG/SENNA 8.6 MG TAB PO SCH ×2 (09:21→21:00)
[2016-08-29] MEDS: metroNIDAZOLE 500 MG INJ 100 ML IV SCH ×4 (09:21→23:59)
[2016-08-29] MEDS: SODIUM CHLORIDE 0.9% FLUSH 10 ML FLUSH IV FLUSH SCH ×2 (09:21→22:19)
[2016-08-29] MEDS: MEMANTINE HCL 10 MG TAB PO SCH ×2 (09:21→22:20)
[2016-08-29] MEDS: DIVALPROEX SODIUM DELAYED RELEASE 250 MG TAB PO SCH ×3 (09:21→18:02)
[2016-08-29] MEDS: VANCOMYCIN 500 MG VIAL (FOR ORAL USE ONLY) PO SCH ×4 (09:21→22:20)
--- NOTE | 2016-08-29 09:33 | HHI.PR ---
"Subjective Remarks Follow-up severe C. difficile diarrhea 08/28/16-patient seen and examined, follow some commands but very limited in his expression. Case discussed with patient's daughter 08/29/16-patient seen and examined, alert and| very talkative today. He had episode of confusion overnight, however appears stable this morning Objective Vitals Vital Signs Date Time Temp Pulse Resp B/P Pulse Ox O2 Delivery O2 Flow Rate FiO2 08/29/16 08:00 97.0 62 18 165/69 97 08/29/16 04:40 97.6 65 18 145/70 94 08/28/16 23:30 98.1 68 18 150/72 98 08/28/16 21:57 77 18 0/ 96 162/80 08/28/16 20:00 Room Air 08/28/16 20:00 70 08/28/16 19:26 97.5 70 18 164/78 96 158/64 08/28/16 16:00 97.3 49 16 136/60 98 08/28/16 12:00 97.4 61 20 108/55 99 I/O 08/28/16 08/28/16 08/28/16 08/29/16 08/29/16 08/29/16 07:00 15:00 23:00 07:00 15:00 23:00 Intake Total 360 ml 3910 ml 1288 ml Output Total 350 ml 300 ml Balance 360 ml 3560 ml 988 ml Intake Oral 360 ml 120 ml 240 ml IV Total 3790 ml 1048 ml Output Urine Total 350 ml 300 ml # Voids 2 2 # Bowel Movements 0 1 0 Result Diagram: 08/29/16 0744 08/29/16 0744 Objective Remarks GENERAL: NAD SKIN: Warm and dry. HEAD: Normocephalic. EYES: No scleral icterus. No injection or drainage. NECK: Supple, trachea midline. No JVD or lymphadenopathy. CARDIOVASCULAR: Regular rate and rhythm without murmurs, gallops, or rubs. RESPIRATORY: Breath sounds equal bilaterally. No accessory muscle use. GASTROINTESTINAL: Abdomen soft, non-tender, nondistended. MUSCULOSKELETAL: No cyanosis, or edema. BACK: Nontender without obvious deformity. No CVA tenderness. A/P Problem List: (1) C. difficile diarrhea ICD Code: A04.7 Status: Acute (2) History of dementia ICD Code: Z86.59 Status: Acute Assessment and Plan 81-year-old man with Severe C. difficile diarrhea Improving and continue treatment with IV metronidazole and vancomycin. IV fluids. Continue to monitor. Acute kidney injury. secondary to dehydration from C. difficile colitis. Resolved with IV fluid hydration and monitor BUN and creatinine Avoid all nephrotoxic drugs Leukocytosis. Likely secondary to C. difficile colitis. Treat as above. Hyperkalemia. Acute. Resolved status post hydration Dementia. Continue home medications. Restraints as necessary. Consult psychiatry Diabetes mellitus Continue insulin sliding scale Hold oral hypoglycemic agents Possible history of seizure disorder. Continue antiepileptics. Coronary artery disease Hypertension Hold JEFF inhibitor secondary to a acute kidney injury. resume 5 mg daily 08/29/16 Continue anticoagulation.. Vitamin D deficiency. Consider starting vitamin D and monitored Prophylaxis. On therapeutic Brian Pena MD Aug 29, 2016 09:33"
[2016-08-29 09:59] VITALS: PULSE 76
[2016-08-29 12:00] VITALS: BP 127/76; PULSE 92; RESP 18; TEMP 97; O2SAT 97
[2016-08-29 16:00] VITALS: BP 165/84; PULSE 70; RESP 18; TEMP 97; O2SAT 97
[2016-08-29 20:00] VITALS: BP_SYST 162; BP_SYST 178; BP_DIAS 81; BP_DIAS 82; PULSE 66; RESP 16; TEMP 97.3; O2SAT 97
[2016-08-30] VITALS (8 sets, daily range): BP systolic 126–172; BP diastolic 58–84; PULSE 60–78; RESP 18–22; TEMP 97.2–97.6; O2SAT 94–97
[2016-08-30] MEDS: SODIUM CHLOR 0.9% 1000 ML INJ 1,000 ML IV SCH ×3 (03:54→21:33)
[2016-08-30] MEDS: INSULIN ASPART SUPPLEMENTAL SCALE SQ SCH ×4 (05:30→21:00)
[2016-08-30] MEDS: cloNIDine HCL 0.1 MG TAB PO PRN (05:30)
[2016-08-30] MEDS: SODIUM CHLORIDE 0.9% FLUSH 10 ML FLUSH IV FLUSH SCH ×2 (09:00→21:19)
[2016-08-30] MEDS: DOCUSATE SODIUM 50 MG/SENNA 8.6 MG TAB PO SCH ×2 (09:00→21:19)
[2016-08-30] MEDS: metroNIDAZOLE 500 MG INJ 100 ML IV SCH ×3 (10:13→22:55)
[2016-08-30] MEDS: DIVALPROEX SODIUM DELAYED RELEASE 250 MG TAB PO SCH ×3 (10:15→17:42)
[2016-08-30] MEDS: amLODIPine BESYLATE 5 MG TAB PO SCH (10:16)
[2016-08-30] MEDS: APIXABAN 5 MG TABLET PO SCH ×2 (10:16→21:19)
[2016-08-30] MEDS: TAMSULOSIN HCL 0.4 MG CAP PO SCH ×3 (10:16→17:42)
[2016-08-30] MEDS: MEMANTINE HCL 10 MG TAB PO SCH ×2 (10:16→21:19)
[2016-08-30] MEDS: QUEtiapine FUMARATE 25 MG TAB PO SCH ×3 (10:17→17:42)
[2016-08-30] MEDS: VANCOMYCIN 500 MG VIAL (FOR ORAL USE ONLY) PO SCH ×4 (10:17→21:19)
--- NOTE | 2016-08-30 10:40 | HHI.PR ---
"Subjective Remarks Follow-up severe C. difficile diarrhea 08/28/16-patient seen and examined, follow some commands but very limited in his expression. Case discussed with patient's daughter 08/29/16-patient seen and examined, alert and| very talkative today. He had episode of confusion overnight, however appears stable this morning 08/30/16-patient seen and examined currently with upper extremity restraints, some confusion however talkative. Per nurse report patient with some with loose stools however now semi formed Objective Vitals Vital Signs Date Time Temp Pulse Resp B/P Pulse Ox O2 Delivery O2 Flow Rate FiO2 08/30/16 08:00 97.6 62 20 126/74 95 08/30/16 06:34 142/58 08/30/16 04:00 97.6 64 20 172/66 97 Automatic Cuff 08/30/16 00:15 97.2 78 20 158/70 94 Automatic Cuff 08/29/16 20:00 162/82 08/29/16 20:00 Room Air 08/29/16 20:00 97.3 66 16 178/81 97 Automatic Cuff 08/29/16 16:00 97.0 70 18 165/84 97 08/29/16 12:00 97.0 92 18 127/76 97 I/O 08/29/16 08/29/16 08/29/16 08/30/16 08/30/16 08/30/16 07:00 15:00 23:00 07:00 15:00 23:00 Intake Total 1288 ml 480 ml 1025 ml 1121 ml Output Total 300 ml 200 ml Balance 988 ml 480 ml 1025 ml 921 ml Intake Oral 240 ml 480 ml 240 ml 480 ml IV Total 1048 ml 785 ml 641 ml Output Urine Total 300 ml 200 ml # Voids 6 2 2 # Bowel Movements 0 2 1 1 Result Diagram: 08/29/1644 08/29/1644 Objective Remarks GENERAL: NAD with upper extremity restraints SKIN: Warm and dry. HEAD: Normocephalic. EYES: No scleral icterus. No injection or drainage. NECK: Supple, trachea midline. No JVD or lymphadenopathy. CARDIOVASCULAR: Regular rate and rhythm without murmurs, gallops, or rubs. RESPIRATORY: Breath sounds equal bilaterally. No accessory muscle use. GASTROINTESTINAL: Abdomen soft, non-tender, nondistended. MUSCULOSKELETAL: No cyanosis, or edema. BACK: Nontender without obvious deformity. No CVA tenderness. A/P Problem List: (1) C. difficile diarrhea ICD Code: A04.7 Status: Acute (2) History of dementia ICD Code: Z86.59 Status: Acute Assessment and Plan 81-year-old man with Severe C. difficile diarrhea Improving and continue treatment with IV metronidazole and vancomycin as well as IV fluids. Continue to monitor. Acute kidney injury. secondary to dehydration from C. difficile colitis. Resolved with IV fluid hydration and monitor BUN and creatinine Avoid all nephrotoxic drugs Leukocytosis. Likely secondary to C. difficile colitis. Resolved Hyperkalemia. Acute. Resolved status post hydration Dementia. Continue home medications. Restraints as necessary. Consult psychiatry when medically stable Diabetes mellitus Continue insulin sliding scale Continue to Hold oral hypoglycemic agents Possible history of seizure disorder. Continue antiepileptics. Coronary artery disease Hypertension Hold JEFF inhibitor secondary to a acute kidney injury. Continue Norvasc 5 mg daily Continue anticoagulation.. Vitamin D deficiency. Consider starting vitamin D and monitored Prophylaxis. On therapeutic Brian Pena MD Aug 30, 2016 10:40"
[2016-08-31] VITALS (7 sets, daily range): BP systolic 154–182; BP diastolic 70–84; PULSE 55–89; RESP 16–20; TEMP 97.4–98.3; O2SAT 94–99
[2016-08-31] MEDS: INSULIN ASPART SUPPLEMENTAL SCALE SQ SCH ×4 (06:06→21:00)
[2016-08-31] MEDS: SODIUM CHLOR 0.9% 1000 ML INJ 1,000 ML IV SCH ×2 (06:07→20:53)
[2016-08-31] MEDS: metroNIDAZOLE 500 MG INJ 100 ML IV SCH ×3 (08:27→23:17)
[2016-08-31] MEDS: SODIUM CHLORIDE 0.9% FLUSH 10 ML FLUSH IV FLUSH SCH ×2 (08:28→21:33)
[2016-08-31] MEDS: APIXABAN 5 MG TABLET PO SCH ×2 (08:28→21:33)
[2016-08-31] MEDS: DIVALPROEX SODIUM DELAYED RELEASE 250 MG TAB PO SCH ×3 (08:28→17:36)
[2016-08-31] MEDS: TAMSULOSIN HCL 0.4 MG CAP PO SCH ×3 (08:29→17:36)
[2016-08-31] MEDS: DOCUSATE SODIUM 50 MG/SENNA 8.6 MG TAB PO SCH (08:29)
[2016-08-31] MEDS: MEMANTINE HCL 10 MG TAB PO SCH ×2 (08:29→21:33)
[2016-08-31] MEDS: amLODIPine BESYLATE 5 MG TAB PO SCH (08:29)
[2016-08-31] MEDS: QUEtiapine FUMARATE 25 MG TAB PO SCH ×3 (08:30→17:36)
[2016-08-31] MEDS: VANCOMYCIN 500 MG VIAL (FOR ORAL USE ONLY) PO SCH ×4 (08:30→21:34)
--- NOTE | 2016-08-31 09:49 | HHI.PR ---
"Subjective Remarks Follow-up severe C. difficile diarrhea 08/28/16-patient seen and examined, follow some commands but very limited in his expression. Case discussed with patient's daughter 08/29/16-patient seen and examined, alert and| very talkative today. He had episode of confusion overnight, however appears stable this morning 08/30/16-patient seen and examined currently with upper extremity restraints, some confusion however talkative. Per nurse report patient with some with loose stools however now semi formed 08/31/16-patient seen and examined, still with multiple episodes of diarrhea however some of fall. Patient still with confusion otherwise pleasant this morning. Objective Vitals Vital Signs Date Time Temp Pulse Resp B/P Pulse Ox O2 Delivery O2 Flow Rate FiO2 08/31/16 08:01 98.3 89 20 154/70 94 08/31/16 04:00 98.2 67 20 162/78 94 08/31/16 04:00 Room Air 08/31/16 00:00 Room Air 08/31/16 00:00 97.4 77 20 162/84 94 08/30/16 20:14 72 08/30/16 20:00 Room Air 08/30/16 20:00 97.2 75 22 156/84 08/30/16 16:00 97.4 60 18 164/73 95 08/30/16 12:40 95 Room Air 08/30/16 12:00 97.5 60 20 158/73 96 I/O 08/30/16 08/30/16 08/30/16 08/31/16 08/31/16 08/31/16 07:00 15:00 23:00 07:00 15:00 23:00 Intake Total 1121 ml 570 ml 607 ml 672 ml Output Total 200 ml 500 ml 200 ml Balance 921 ml 570 ml 107 ml 472 ml Intake Oral 480 ml 570 ml 120 ml IV Total 641 ml 487 ml 672 ml Output Urine Total 200 ml 500 ml 200 ml # Voids 2 4 # Bowel Movements 1 2 0 0 Result Diagram: 08/29/1674308/29/16743 Objective Remarks GENERAL: NAD with upper extremity restraints SKIN: Warm and dry. HEAD: Normocephalic. EYES: No scleral icterus. No injection or drainage. NECK: Supple, trachea midline. No JVD or lymphadenopathy. CARDIOVASCULAR: Regular rate and rhythm without murmurs, gallops, or rubs. RESPIRATORY: Breath sounds equal bilaterally. No accessory muscle use. GASTROINTESTINAL: Abdomen soft, non-tender, nondistended. MUSCULOSKELETAL: No cyanosis, or edema. BACK: Nontender without obvious deformity. No CVA tenderness. A/P Problem List: (1) C. difficile diarrhea ICD Code: A04.7 Status: Acute (2) History of dementia ICD Code: Z86.59 Status: Acute Assessment and Plan 81-year-old man with Severe C. difficile diarrhea Improving and continue treatment with IV metronidazole and vancomycin as well as IV fluids which I will decrease to 70 mL/hour. Continue to monitor. Acute kidney injury. secondary to dehydration from C. difficile colitis. Resolved with IV fluid hydration and monitor BUN and creatinine Avoid all nephrotoxic drugs Leukocytosis. Resolved Hyperkalemia. Acute. Resolved status post hydration Dementia. Continue home medications. Restraints as necessary. Consult psychiatry when medically stable Diabetes mellitus Continue insulin sliding scale Continue to Hold oral hypoglycemic agents Possible history of seizure disorder. Continue antiepileptics. Coronary artery disease Hypertension Hold JEFF inhibitor secondary to a acute kidney injury. Continue Norvasc 5 mg daily Continue anticoagulation.. Vitamin D deficiency. Consider starting vitamin D and monitored Prophylaxis. On therapeutic Brian Pena MD Aug 31, 2016 09:49"
[2016-08-31] MEDS: cloNIDine HCL 0.1 MG TAB PO PRN (23:39)
[2016-09-01 04:00] VITALS: BP 178/80; PULSE 60; RESP 16; TEMP 98.2; O2SAT 93
[2016-09-01] MEDS: INSULIN ASPART SUPPLEMENTAL SCALE SQ SCH ×4 (05:47→21:00)
[2016-09-01 08:00] VITALS: BP 184/88; PULSE 59; PULSE 64; RESP 20; TEMP 97.5; O2SAT 94
[2016-09-01] MEDS: SODIUM CHLORIDE 0.9% FLUSH 10 ML FLUSH IV FLUSH SCH ×2 (09:00→22:58)
[2016-09-01 09:48] LABS: AUTOMATED NEUTROPHIL # 5.3 TH/MM3 (1.8-7.7); BASOPHIL # 0.1 TH/MM3 (0-0.2); BASOPHIL % 1.2 % (0.0-2.0); EOSINOPHIL # 0.6 TH/MM3 (0-0.4); EOSINOPHIL % 8.2 % (0.0-4.0); HEMATOCRIT 34.1 % (39.0-51.0); HEMO FLAGS DIFF FINAL; LYMPH % 11.4 % (9.0-44.0); LYMPHOCYTE # 0.9 TH/MM3 (1.0-4.8); MEAN CELL VOLUME 92.9 FL (80.0-100.0); MEAN CORPUSCULAR HEMOGLOBIN 31.7 PG (27.0-34.0); MEAN CORPUSCULAR HGB CONC 34.1 % (32.0-36.0); MONO % 9.6 % (0.0-8.0); NEUT % 69.6 % (16.0-70.0); PLATELET COUNT 160 TH/MM3 (150-450); RED BLOOD COUNT 3.67 MIL/MM3 (4.50-5.90); RED CELL DISTRIBUTION WIDTH 15.1 % (11.6-17.2); WHITE BLOOD COUNT 7.7 TH/MM3 (4.0-11.0)
[2016-09-01] MEDS: TAMSULOSIN HCL 0.4 MG CAP PO SCH ×3 (09:57→18:30)
[2016-09-01] MEDS: DIVALPROEX SODIUM DELAYED RELEASE 250 MG TAB PO SCH ×3 (09:57→18:30)
[2016-09-01] MEDS: amLODIPine BESYLATE 5 MG TAB PO SCH (09:57)
[2016-09-01] MEDS: MEMANTINE HCL 10 MG TAB PO SCH ×2 (09:57→22:56)
[2016-09-01] MEDS: metroNIDAZOLE 500 MG INJ 100 ML IV SCH (09:58)
[2016-09-01] MEDS: APIXABAN 5 MG TABLET PO SCH ×2 (09:58→22:56)
[2016-09-01] MEDS: LISINOPRIL 20 MG TAB PO SCH (09:58)
[2016-09-01] MEDS: VANCOMYCIN 500 MG VIAL (FOR ORAL USE ONLY) PO SCH ×4 (09:58→22:56)
[2016-09-01] MEDS: QUEtiapine FUMARATE 25 MG TAB PO SCH ×3 (09:59→18:30)
[2016-09-01 10:05] LABS: BICARBONATE 28.9 MEQ/L (21.0-32.0)
[2016-09-01 12:00] VITALS: BP 108/59; PULSE 63; RESP 20; TEMP 97.7; O2SAT 96
[2016-09-01] MEDS ORDERED: VANC500I3 PO (12:46)
--- NOTE | 2016-09-01 12:49 | HHI.PR ---
"Subjective Remarks Follow-up severe C. difficile diarrhea 08/28/16-patient seen and examined, follow some commands but very limited in his expression. Case discussed with patient's daughter 08/29/16-patient seen and examined, alert and| very talkative today. He had episode of confusion overnight, however appears stable this morning 08/30/16-patient seen and examined currently with upper extremity restraints, some confusion however talkative. Per nurse report patient with some with loose stools however now semi formed 08/31/16-patient seen and examined, still with multiple episodes of diarrhea however some of fall. Patient still with confusion otherwise pleasant this morning. 09/01/16-patient seen and examined, now with improved diarrhea episodes. He has had no bowel movement since 7 AM this morning. Case discussed with patient' s daughter Objective Vitals Vital Signs Date Time Temp Pulse Resp B/P Pulse Ox O2 Delivery O2 Flow Rate FiO2 09/01/16 08:00 97.5 59 20 184/88 94 09/01/16 04:00 98.2 60 16 178/80 93 08/31/16 23:45 97.6 69 16 182/74 94 08/31/16 20:00 67 08/31/16 20:00 97.6 56 18 156/78 99 08/31/16 20:00 Room Air 08/31/16 16:01 97.8 55 20 174/72 97 I/O 08/31/16 08/31/16 08/31/16 09/01/16 09/01/16 09/01/16 07:00 15:00 23:00 07:00 15:00 23:00 Intake Total 672 ml 480 ml 642 ml 426 ml Output Total 200 ml 200 ml 560 ml Balance 472 ml 480 ml 442 ml -134 ml Intake Oral 480 ml 240 ml 120 ml IV Total 672 ml 402 ml 306 ml Output Urine Total 200 ml 200 ml 560 ml # Voids 3 1 # Bowel Movements 0 2 0 0 Result Diagram: 09/01/1685609/01/16856 Objective Remarks GENERAL: NAD with upper extremity restraints SKIN: Warm and dry. HEAD: Normocephalic. EYES: No scleral icterus. No injection or drainage. NECK: Supple, trachea midline. No JVD or lymphadenopathy. CARDIOVASCULAR: Regular rate and rhythm without murmurs, gallops, or rubs. RESPIRATORY: Breath sounds equal bilaterally. No accessory muscle use. GASTROINTESTINAL: Abdomen soft, non-tender, nondistended. MUSCULOSKELETAL: No cyanosis, or edema. BACK: Nontender without obvious deformity. No CVA tenderness. A/P Problem List: (1) C. difficile diarrhea ICD Code: A04.7 Status: Acute (2) History of dementia ICD Code: Z86.59 Status: Acute Assessment and Plan 81-year-old man with Severe C. difficile diarrhea Improving and continue treatment with IV metronidazole and vancomycin . Continue to monitor. Will discharge patient to inpatient psychiatry as his condition has significantly improved Patient is now medically stable for transfer to inpatient psych when he will complete a 14 day course of both Flagyl and vancomycin Acute kidney injury. secondary to dehydration from C. difficile colitis. Resolved with IV fluid hydration and monitor BUN and creatinine Avoid all nephrotoxic drugs Leukocytosis. Resolved Hyperkalemia. Acute. Resolved status post hydration Dementia. Continue home medications. Restraints as necessary. Consult psychiatry Diabetes mellitus Continue insulin sliding scale Will resume oral hypoglycemic agents Possible history of seizure disorder. Continue antiepileptics. Coronary artery disease Hypertension Hold JEFF inhibitor secondary to a acute kidney injury. Continue Norvasc 5 mg daily and restart lisinopril 40 mg daily Continue anticoagulation.. Vitamin D deficiency. Consider starting vitamin D and monitored Prophylaxis. On therapeutic Brian Pena MD Sep 01, 2016 12:49"
--- NOTE | 2016-09-01 12:51 | HHI.DS ---
Discharge Summary Admission Date Aug 27, 2016 at 23:00 Discharge Date: Sep 01, 2016 Admitting Diagnosis (1) C. difficile diarrhea ICD Code: A04.7 (2) History of dementia ICD Code: Z86.59 (3) Acute renal failure ICD Code: N17.9 Procedures None Brief History - From Admission 81-year-old male with a history of dementia, coronary artery disease, hypertension, history of CVA on Eliquis, diabetes, BPH, seizure disorder, who was initially brought into ED under [facility] act. Patient seen this afternoon around 4 PM. Patient has developed profuse diarrhea. History limited as Patient somnolent after antipsychotic. He denies any pain. Nursing reports he appears at mental baseline. CBC/BMP: 09/01/16 0857 09/01/16 0857 Significant Findings Laboratory Tests Test 09/01/16 08:57 Red Blood Count 3.67 MIL/MM3 (4.50-5.90) Hemoglobin 11.6 GM/DL (13.0-17.0) Hematocrit 34.1 % (39.0-51.0) Monocytes (%) (Auto) 9.6 % (0.0-8.0) Eosinophils (%) (Auto) 8.2 % (0.0-4.0) Lymphocytes # (Auto) 0.9 TH/MM3 (1.0-4.8) Eosinophils # (Auto) 0.6 TH/MM3 (0-0.4) Chloride Level 108 MEQ/L (98-107) Estimat Glomerular Filtration 68 ML/MIN (>89) Rate Calcium Level 8.3 MG/DL (8.5-10.1) PE at Discharge GENERAL: NAD with upper extremity restraints SKIN: Warm and dry. HEAD: Normocephalic. EYES: No scleral icterus. No injection or drainage. NECK: Supple, trachea midline. No JVD or lymphadenopathy. CARDIOVASCULAR: Regular rate and rhythm without murmurs, gallops, or rubs. RESPIRATORY: Breath sounds equal bilaterally. No accessory muscle use. GASTROINTESTINAL: Abdomen soft, non-tender, nondistended. MUSCULOSKELETAL: No cyanosis, or edema. BACK: Nontender without obvious deformity. No CVA tenderness. Hospital Course Patient was initially under the care of psychiatry on a psych will and admitted to medical was secondary to severe C. difficile diarrhea as well as hyperkalemia and acute renal failure. He was started on IV Flagyl and by mouth vancomycin, IV fluid hydration with significant improvement of clostridium difficile diarrhea. He was kept on a sliding scale insulin. Patient blood pressure medication was adjusted accordingly. He was continued on his oral anticoagulation. Patient will need to complete a total course of 14 days of both vancomycin and Flagyl by mouth; end date 09/10/16 Pt Condition on Discharge: Stable Discharge Disposition: Disc to Psych Care Fac Discharge Time: > 30 minutes Discharge Instructions DIET: Follow Instructions for: Diabetic Diet Activities you can perform: Regular-No Restrictions Follow up Referrals: PCP Follow-up - 1 Week New Medications: Vancomycin Inj (Vancomycin Inj) 500 Mg Inj 250 MG PO QID Infection #38 INJECTION Continued Medications: Amlodipine (Amlodipine) Unknown Strength Tab 5 PO DAILY Blood Pressure Management #30 Ref 0 TAB Apixaban (Eliquis) 5 Mg Tab 5 MG PO BID Blood Clot Prevention #60 Ref [address] (Divalproex DR) 250 Mg Tabdr 250 MG PO TID Control Seizures #60 Ref 0 TAB Lisinopril (Lisinopril) 40 Mg Tab 40 MG PO DAILY Blood Pressure Management #30 Ref 0 TAB Memantine (Memantine) 10 Mg Tab 10 MG PO BID Alzheimer's Dementia Ref 0 TAB Metformin (Metformin) 1,000 Mg Tab 1000 MG PO BIDPC With meals Blood Sugar Management #60 Ref 0 TAB Quetiapine (Quetiapine) 50 Mg Tab 50 MG PO TID #60 Ref 0 TAB Tamsulosin (Tamsulosin) 0.4 Mg Cap 0.4 MG PO TID Manage Prostate Problems #30 Ref 0 CAP Brian Harrison MD Sep 01, 2016 12:51
--- NOTE | 2016-09-01 14:23 | HHI.PYPN ---
Subjective Remarks Patient was seen today for psychiatric reevaluation, patient was sitting down in a chair, his daughter was shaving him. He seems to be comfortable, he is calm, cooperative, pleasantly confused. He reports good mood, he is able to recognize his daughter, even though his disoriented in time and place. He denies suicidal or homicidal ideation, he denies visual and auditory hallucinations. No agitation, hostility, irritability, aggressive behavior observed at this moment. His daughter Flory Kaufman, who is his healthcare by proxy, is states that the patient has been calm today, but very agitated, disorganized and difficult to manage at night time. She says that this episodic aggressive behavior is new and is not part of his baseline. She is afraid that if the patient is discharged to residential at this moment there was sent him back on the [facility] act. She will feel more comfortable if patient is stabilized a little more in the psychiatric unit. Review of Systems Constitutional: DENIES: Diaphoretic episodes, Fatigue, Fever, Weight gain, Weight loss, Chills, Dizziness, Change in appetite, Night Sweats Other No somatic complaints Objective Alert: Yes [place]: Person Mood: Calm Affect: Appropriate Memory Intact: Immediate, Comment (no fully assessed) Hallucinations: Other (he denies hallucinations) Delusions: No Delusion Type: Other (none elicited) Suicidal: Ideation (he denies SI) Homicidal: Ideation (no HI) Insight/[facility] Fair Labs Test 09/01/16 08:57 White Blood Count 7.7 TH/MM3 Red Blood Count 3.67 MIL/MM3 Hemoglobin 11.6 GM/DL Hematocrit 34.1 % Mean Corpuscular Volume 92.9 FL Mean Corpuscular Hemoglobin 31.7 PG Mean Corpuscular Hemoglobin 34.1 % Concent Red Cell Distribution Width 15.1 % Platelet Count 160 TH/MM3 Mean Platelet Volume 8.4 FL Neutrophils (%) (Auto) 69.6 % Lymphocytes (%) (Auto) 11.4 % Monocytes (%) (Auto) 9.6 % Eosinophils (%) (Auto) 8.2 % Basophils (%) (Auto) 1.2 % Neutrophils # (Auto) 5.3 TH/MM3 Lymphocytes # (Auto) 0.9 TH/MM3 Monocytes # (Auto) 0.7 TH/MM3 Eosinophils # (Auto) 0.6 TH/MM3 Basophils # (Auto) 0.1 TH/MM3 CBC Comment DIFF FINAL Differential Comment Sodium Level 143 MEQ/L Potassium Level 4.0 MEQ/L Chloride Level 108 MEQ/L Carbon Dioxide Level 28.9 MEQ/L Anion Gap 6 MEQ/L Blood Urea Nitrogen 12 MG/DL Creatinine 1.04 MG/DL Estimat Glomerular Filtration 68 ML/MIN Rate Random Glucose 106 MG/DL Calcium Level 8.3 MG/DL Vitals/IOs Vital Signs Date Time Temp Pulse Resp B/P Pulse Ox O2 Delivery O2 Flow Rate FiO2 09/01/16 08:00 97.5 59 20 184/88 94 08/31/16 20:00 Room Air Intake and Output 08/31/16 08/31/16 09/01/16 08:00 16:00 00:00 Intake Total 672 ml 480 ml 642 ml Output Total 200 ml 200 ml Balance 472 ml 480 ml 442 ml Assessment & Plan Problem List: (1) Dementia in other diseases classified elsewhere with behavioral disturbance Assessment & Plan: Patient will be transferred to psychiatry once medically clear to continue psychiatric stabilization. Continue current psychotropic regimen. We'll follow-up in the medical floor. ICD Code: F02.81 Assessment & Plan Estimated LOS: days Justification for Cont. Inpt. Patient needs psychiatric admission for stabilization. Bo Early MD Sep 01, 2016 14:23
[2016-09-01 16:00] VITALS: BP 170/72; PULSE 56; RESP 20; TEMP 97.3; O2SAT 96
[2016-09-01] MEDS: metroNIDAZOLE 500 MG TAB PO SCH ×2 (18:30→22:56)
[2016-09-01 20:00] VITALS: BP 150/80; PULSE 55; PULSE 67; RESP 18; TEMP 97.3; O2SAT 93
[2016-09-02] VITALS: BP 152/72; PULSE 66; RESP 18; TEMP 97.4; O2SAT 96
[2016-09-02 04:00] VITALS: BP 132/60; PULSE 63; RESP 16; TEMP 97.3; O2SAT 93
[2016-09-02] MEDS: metroNIDAZOLE 500 MG TAB PO SCH (05:35)
[2016-09-02] MEDS: INSULIN ASPART SUPPLEMENTAL SCALE SQ SCH (05:47)
[2016-09-02 08:00] VITALS: BP 153/74; PULSE 63; RESP 18; TEMP 97.2; O2SAT 93
[2016-09-02] MEDS: SODIUM CHLORIDE 0.9% FLUSH 10 ML FLUSH IV FLUSH SCH (08:00)
[2016-09-02] MEDS: DIVALPROEX SODIUM DELAYED RELEASE 250 MG TAB PO SCH (08:47)
[2016-09-02] MEDS: VANCOMYCIN 500 MG VIAL (FOR ORAL USE ONLY) PO SCH (08:47)
[2016-09-02] MEDS: LISINOPRIL 20 MG TAB PO SCH (08:47)
[2016-09-02] MEDS: MEMANTINE HCL 10 MG TAB PO SCH (08:48)
[2016-09-02] MEDS: QUEtiapine FUMARATE 25 MG TAB PO SCH (08:48)
[2016-09-02] MEDS: amLODIPine BESYLATE 5 MG TAB PO SCH (08:48)
[2016-09-02] MEDS: APIXABAN 5 MG TABLET PO SCH (08:48)
[2016-09-02] MEDS: TAMSULOSIN HCL 0.4 MG CAP PO SCH (08:48)
== END 2016-09-02 10:01 | DRG 372 ==
LOC: N04B 23:00 → OBSVTOIN 23:00
PROVIDERS: ADMIT Hospitalist; ATTEND Hospitalist
DX: A04.7 Enterocolitis due to Clostridium difficile (principal); N17.9 Acute kidney failure, unspecified; E87.5 Hyperkalemia; F03.90 Unspecified dementia, unspecified severity, without behavioral disturbance, psychotic disturbance, mood disturbance, and anxiety; Z78.1 Physical restraint status; E86.0 Dehydration; E11.9 Type 2 diabetes mellitus without complications; Z79.84 Long term (current) use of oral hypoglycemic drugs; I25.10 Atherosclerotic heart disease of native coronary artery without angina pectoris; I10 Essential (primary) hypertension; E55.9 Vitamin D deficiency, unspecified; N40.0 Benign prostatic hyperplasia without lower urinary tract symptoms; G40.909 Epilepsy, unspecified, not intractable, without status epilepticus; Z86.73 Personal history of transient ischemic attack (TIA), and cerebral infarction without residual deficits; Z79.02 Long term (current) use of antithrombotics/antiplatelets
CPT/HCPCS: 76937; 80048; 80053; 82948; 85025; 93005; J1815; J7030

== ENCOUNTER 2016-09-01 22:32 | Inpatient (IN) | payer OTHER, MEDICARE ==
[~2016-09-01] VITALS: Ht 172.7 cm; Wt 79.9 kg
[~2016-09-01 22:32] MED LIST changes: +VANC500I3 PO
[2016-09-02 11:19] VITALS: BP 168/76; PULSE 63; RESP 18; TEMP 97.7; O2SAT 95
[2016-09-02] MEDS ORDERED: TAMSULOSIN HCL 0.4 MG CAP PO SCH (13:00)
[2016-09-02] MEDS: DIVALPROEX SODIUM DELAYED RELEASE 250 MG TAB PO SCH ×2 (13:55→16:48)
[2016-09-02] MEDS: QUEtiapine FUMARATE 25 MG TAB PO SCH ×2 (13:55→16:48)
--- NOTE | 2016-09-02 14:25 | HHI.HP ---
Provisional Diagnosis Admission Date Sep 02, 2016 at 09:51 [place]. Dementia with behavioral disturbances Certification of Person's Competence To Provide Express and Informed Consent I have personally examined Lazaro Suarez , a person being served at [facility] on, Sep 02, 2016 14:20. Express and informed consent means consent voluntarily given in writing, by a competent person, after sufficient explanation and disclosure of the subject matter involved to enable the person to make a knowing and willful decision without any element of force, fraud, deceit, duress, or other form of constraint or coercion. This person is 18 years of age or older, is not now known to be incompetent to consent to treatment with a guardian advocate, and does not have a health care surrogate or proxy currently making medical treatment decisions. I have found this person to be one of the following: [] Competent to provide express and informed consent, as defined above, for voluntary admission to this facility and is competent to provide express and informed consent for treatment. He/she has the consistent capacity to make well reasoned, willful, and knowing decisions concerning his or her medical or mental health treatment. The person fully and consistently understands the purpose of the admission for examination/placement and is fully capable of personally exercising all rights assured [place] [X] Incompetent to provide express and informed consent to voluntary admission, and this is incompetent to provide express and informed consent to treatment. The person must be transferred to involuntary status and a petition for a guardian advocate filed with the Circuit Court. [] Refusing to provide express and informed consent to voluntary admission but is competent to provide express and informed consent for treatment. The person must be discharged or transferred to involuntary status. Form shall be completed within 24 hours of a person's arrival at the receiving facility and filed in the clinical record of each person: 1. Admitted on a voluntary basis 2. Permitted to provide express and informed consent to his/her own treatment 3. Allowed to transfer from involuntary to voluntary status 4. Prior to permitting a person to consent to his or her own treatment after having been previously found incompetent to consent to treatment. History of Present Illness Capacity: Lacks Capacity HPI Initial H&P by Dr. Ely: This is an 81-year-old male with a history of dementia , CVA, cardiac disease, diabetes, and recent sundowning. Apparently the patient was recently at [facility] and last night he became agitated, belligerent and physically aggressive towards staff members. As a result of his violence and attempted violence toward staff members, he was Gao acted. At this time the patient is calm, pleasant and cooperative. He does not have a complete memory of what occurred last night. He is telling this physician that he was in some way disrespected by staff. However, this physician spoke with the patient's daughter, who is an emergency room nurse. The daughter indicates that her father sundown's rather badly in the late afternoon and early evening. At these times he becomes very confused, paranoid and aggressive towards others. He was recently treated at [facility] and had significant cardiac reactions to Haldol and Ativan, substantially altering his blood pressure, heart rate, etc. and necessitating intensive care monitoring. He was eventually placed on Seroquel 50 mg 3 times a day and Depakote 250 mg 3 times a day. Unfortunately, it appears these medicines are not working as the patient continues to sundown with violence towards others. He does not have a history of alcoholism or drug abuse. However, his daughter states since his cerebral vascular accident, he has been much more difficult to manage. Follow-up in the medical floor by Dr. Early 09/01/2016 Patient was seen today for psychiatric reevaluation, patient was sitting down in a chair, his daughter was shaving him. He seems to be comfortable, he is calm, cooperative, pleasantly confused. He reports good mood, he is able to recognize his daughter , even though his disoriented in time and place. He denies suicidal or homicidal ideation, he denies visual and auditory hallucinations. No agitation , hostility, irritability, aggressive behavior observed at this moment. His daughter Flory Kaufman, who is his healthcare by proxy, is states that the patient has been calm today, but very agitated, disorganized and difficult to manage at night time. She says that this episodic aggressive behavior is new and is not part of his baseline. She is afraid that if the patient is discharged to [facility] at this moment there was sent him back on the Gao act. She will feel more comfortable if patient is stabilized a little more in the psychiatric unit. Today on psychiatric reevaluation in the [facility] psych unit patient is a sleeping, poorly cooperative, however, he says that he feels much better, his disoriented pleasantly confused. He denies suicidal or homicidal ideation, he denies visual and auditory hallucinations. He denies depressive symptoms, no agitation or aggressive behavior reported in the last 24 hours. Patient is compliant with medications. Review of Systems Constitutional: DENIES: Diaphoretic episodes, Fatigue, Fever, Weight gain, Weight loss, Chills, Dizziness, Change in appetite, Night Sweats Endocrine: DENIES: Heat/cold intolerance, Polydipsia, Polyuria, Polyphagia Eyes: DENIES: Blurred vision, Diplopia, Eye inflammation, Eye pain, Vision loss , Photosensitivity, Double Vision Ears, nose, mouth, throat: DENIES: Tinnitus, Hearing loss, Vertigo, Nasal discharge, Oral lesions, Throat pain, Hoarseness, Ear Pain, Running Nose, Epistaxis, Sinus Pain, Toothache, Odynophagia Respiratory: DENIES: Apneas, Cough, Snoring, Wheezing, Hemoptysis, Sputum production, Shortness of breath Integumentary: DENIES: Abnormal pigmentation, Nail changes, Pruritus, Rash Hematologic/lymphatic: DENIES: Bruising, Lymphadenopathy Neurologic: DENIES: Abnormal gait, Headache, Localized weakness, Paresthesias, Seizures, Speech Problems, Tremor, Poor Balance Past Psych History Violence risk - self (6 mos) Increase risk of danger to self Substance Abuse History Drugs/Alcohol past 12 months Denies alcohol and drugs Past Family Social History Coded Allergies: Ativan (Verified Allergy, Severe, 08/22/16) Benadryl (Verified Allergy, Severe, 08/22/16) Haldol (Verified Allergy, Severe, 08/22/16) HMG-CoA Reductase Inhibitors (Verified Allergy, Unknown, 08/18/16) Active Scripts Vancomycin Inj 500 Mg [id number] Mg PO QID #38 INJECTION Prov:Brian Harrison MD 09/01/16 Reported Medications Hydralazine HCl 50 Mg Tablet 08/18/16 Quetiapine 50 Mg Tab50 Mg PO TID #60 TAB Ref 0 08/18/[address] 250 Mg [id number] Mg PO TID #60 TAB Ref 0 08/18/16 Tamsulosin 0.4 Mg Cap0.4 Mg PO TID #30 CAP Ref 0 08/18/16 Lisinopril 40 Mg Tab40 Mg PO DAILY #30 TAB Ref 0 08/18/16 Amlodipine Unknown Strength Tab5 PO DAILY #30 TAB Ref 0 08/18/16 Memantine 10 Mg Tab10 Mg PO BID Ref 0 08/18/16 Metformin 1,000 Mg Tab1,000 Mg PO BIDPC #60 TAB Ref 0 With meals 08/18/16 Apixaban (Eliquis)5 Mg Tab5 Mg PO BID #60 TAB Ref 0 08/18/16 Current Medications Medications (Trade) Dose Ordered Sig/Krish Route Start Time Stop Time Status Last Admin (Eliquis) 5 mg BID PO 09/02/16 21:00 (Depakote Dr) 250 mg TID PO 09/02/16 13:00 09/02/16 13:55 (Namenda) 10 mg BID PO 09/02/16 21:00 (Glucophage) 1,000 mg BIDPC PO 09/02/16 18:00 (Prinivil) 40 mg DAILY PO 09/03/16 09:00 (SEROquel) 50 mg TID PO 09/02/16 13:00 09/02/16 13:55 (VANCOMYCIN for oral use only) 250 mg QID PO 09/02/16 18:00 09/10/16 12:00 UNV (Flagyl) 500 mg Q8HR PO 09/02/16 14:15 09/10/16 12:00 UNV (Flomax) 0.8 mg BID PO 09/02/16 21:00 UNV Physical Exam Vital Signs Vital Signs Date Time Temp Pulse Resp B/P Pulse Ox O2 Delivery O2 Flow Rate FiO2 09/02/16 11:19 97.7 63 18 168/76 95 Mental Status Examination Appearance elderly man, age appearing, good hygiene, [facility], calm, poorly cooperative, disoriented Speech: Hesitant, Slow Orientation: Person Memory: Impaired (describe) Thought Process: Linear, Loose Association Thought Content: Bizarre thinking Hallucination Type: None Suicidal Ideation: No Previous Suicide Attempts: No Homicidal Ideation: No Previous Homicide Attempts: No Affect: Good Mood: Appropriate Motor Activity: Normal gait Assessment & Plan Problem List: (1) Dementia in other diseases classified elsewhere with behavioral disturbance Assessment & Plan: Patient will continue for psychiatric admission for stabilization of behavior and mood. Patient displayed frequent episodes of agitation and combativeness in the medical floor. We will reconsult hospital is to follow-up underlying medical conditions. Will continue current medical medications, as discharge for medical floor. Will continue current psychotropics. drawer hardware worker intervention to coordinate safe discharge planning. ICD Code: F02.81 Assessment & Plan Estimated LOS: Bo Ivey MD Sep 02, 2016 14:25
[2016-09-02] MEDS: metroNIDAZOLE 500 MG TAB PO SCH ×2 (14:48→22:00)
[2016-09-02] MEDS: metFORMIN HCL 500 MG TAB PO SCH (16:48)
[2016-09-02] MEDS: VANCOMYCIN 500 MG VIAL (FOR ORAL USE ONLY) PO SCH ×2 (16:48→21:00)
[2016-09-02 18:37] VITALS: BP 156/72; PULSE 78; RESP 18; TEMP 97.6; O2SAT 97
[2016-09-02] MEDS: APIXABAN 5 MG TABLET PO SCH (21:00)
[2016-09-02] MEDS: TAMSULOSIN HCL 0.4 MG CAP PO SCH (21:00)
[2016-09-02] MEDS: MEMANTINE HCL 10 MG TAB PO SCH (21:00)
[2016-09-03 05:48] VITALS: BP 154/76; PULSE 72; RESP 20; TEMP 97.9; O2SAT 98
[2016-09-03] MEDS: metroNIDAZOLE 500 MG TAB PO SCH ×3 (06:00→21:57)
[2016-09-03] MEDS ORDERED: cloNIDine HCL 0.1 MG TAB PO PRN (08:00)
[2016-09-03] MEDS ORDERED: ACETAMINOPHEN 325 MG TAB PO PRN (08:00)
[2016-09-03] MEDS ORDERED: GLUCAGON 1 MG/ML VIAL OTHER PRN (08:00)
[2016-09-03] MEDS ORDERED: SENNOSIDES 8.6 MG TAB PO PRN (08:00)
[2016-09-03] MEDS ORDERED: MAGNESIUM HYDROXIDE SUSP 30 ML CUP PO PRN (08:00)
[2016-09-03] MEDS ORDERED: DEXTROSE 50% IN WATER 50 ML VIAL(D50) IV PRN (08:00)
[2016-09-03] MEDS ORDERED: LACTULOSE SYRUP 20 GM/30 ML CUP PO PRN (08:00)
[2016-09-03] MEDS ORDERED: CALCIUM CARBONATE 500 MG CHEWABLE TAB CHEW PRN (08:00)
[2016-09-03] MEDS: DIVALPROEX SODIUM DELAYED RELEASE 250 MG TAB PO SCH ×3 (08:42→18:00)
[2016-09-03] MEDS: metFORMIN HCL 500 MG TAB PO SCH ×2 (08:42→18:00)
[2016-09-03] MEDS: LISINOPRIL 20 MG TAB PO SCH (08:42)
[2016-09-03] MEDS: QUEtiapine FUMARATE 25 MG TAB PO SCH ×3 (08:42→18:00)
[2016-09-03] MEDS: TAMSULOSIN HCL 0.4 MG CAP PO SCH ×2 (08:42→21:00)
[2016-09-03] MEDS: VANCOMYCIN 500 MG VIAL (FOR ORAL USE ONLY) PO SCH ×4 (08:43→21:00)
[2016-09-03] MEDS: amLODIPine BESYLATE 5 MG TAB PO SCH (08:49)
[2016-09-03] MEDS: APIXABAN 5 MG TABLET PO SCH ×2 (08:49→21:00)
[2016-09-03] MEDS: MEMANTINE HCL 10 MG TAB PO SCH ×2 (08:49→21:00)
[2016-09-03] MEDS: INSULIN ASPART SUPPLEMENTAL SCALE SQ SCH ×3 (11:00→21:00)
--- NOTE | 2016-09-03 14:34 | HHI.PYPN ---
Subjective Remarks Patient seen for psychiatric reevaluation today, continues to be pleasantly confused, with episodic agitation and aggressive behavior, but redirectable. He hasn't need any IM medications. He has been compliant with his psychotropics , nose and medical side effects. Denies suicidal or homicidal ideation, denies visual and auditory hallucinations. Review of Systems Other No somatic complaint Objective Alert: Yes Magness: Person Mood: Calm Affect: Appropriate Memory Intact: Immediate Hallucinations: Other (denies hallucinations) Delusions: No Delusion Type: Other (not illicit) Suicidal: Ideation (denies SI) Homicidal: Ideation (denies HI) Insight/Judgment Poor Labs Test 09/02/16 16:01 Valproic Acid (Depakene) Level 52 MCG/ML Vitals/IOs Vital Signs Date Time Temp Pulse Resp B/P Pulse Ox O2 Delivery O2 Flow Rate FiO2 09/03/16 05:48 97.9 72 20 154/76 98 Intake and Output 09/02/16 09/02/16 09/03/16 08:00 16:00 00:00 Intake Total 240 ml Balance 240 ml Assessment & Plan Problem List: (1) Dementia in other diseases classified elsewhere with behavioral disturbance Assessment & Plan: Continue current psychotropic regimen ICD Code: F02.81 Assessment & Plan Estimated LOS: days Justification for Cont. Inpt. Patient has an elevated risk to decompensate in the lower level of care Bo Early MD Sep 03, 2016 14:34
--- NOTE | 2016-09-03 17:20 | PD.CONS ---
[facility] By [facility]ry team Reason for Consult Medical management, C. difficile Primary Care Physician Traci Doty Do, MD Diagnoses: History of Present Illness Written by Juan Manuel More, acting as scribe for Dr. Sanchez on 09/03/16 at 17: 02. Patient is an 81-year-old male with primary medical history of dementia, CAD, HTN, history of CVA on elk was, DM, BPH, seizure disorder, who was initially admitted to inpatient psychiatric unit under Gao act for evaluation of aggressive behavior. He was having profuse diarrhea and got admitted to inpatient. He was diagnosed with clostridium difficile and was started on Flagyl and vancomycin. He was also had IV fluid hydration. Patient clinically improved and now discharged to medical psychiatry unit for further monitoring. Consulted for medical management. Patient seen and examined. Patient is confused but able to respond to questions and commands. Poor historian. As per staff, a large bowel movement, formed, last night. Denies pain and discomfort. Denies SOB/ dyspnea. Denies chest pain, palpitations, headaches, dizziness. Denies fevers, chills, n/v/d. Denies dysuria. Review of Systems ROS Limitations: Poor Historian Except as stated in HPI: all other systems reviewed are Neg Past Family Social History Allergies: Coded Allergies: Ativan (Verified Allergy, Severe, 08/22/16) Benadryl (Verified Allergy, Severe, 08/22/16) Haldol (Verified Allergy, Severe, 08/22/16) HMG-CoA Reductase Inhibitors (Verified Allergy, Unknown, 08/18/16) Past Medical History Per review of records Hypertension Coronary artery disease Diabetes History of CVA and Eliquis Dementia BPH Past Surgical History Patient denies any surgical history, no surgical history found on the record Reported Medications Reported Meds & Active Scripts Active Vancomycin Inj (Vancomycin HCl) 500 Mg Inj 250 Mg PO QID Reported Hydralazine HCl 50 Mg Tablet Quetiapine (Quetiapine Fumarate) 50 Mg Tab 50 Mg PO TID Divalproex DR (Divalproex Sodium) 250 Mg Tabdr 250 Mg PO TID Tamsulosin (Tamsulosin HCl) 0.4 Mg Cap 0.4 Mg PO TID Lisinopril 40 Mg Tab 40 Mg PO DAILY Amlodipine (Amlodipine Besylate) Unknown Strength Tab 5 PO DAILY Memantine 10 Mg Tab 10 Mg PO BID Metformin (Metformin HCl) 1,000 Mg Tab 1,000 Mg PO BIDPC With meals Eliquis (Apixaban) 5 Mg Tab 5 Mg PO BID Active Ordered Medications Current Medications Medications (Trade) Dose Ordered Sig/Krish Route Start Time Stop Time Status Last Admin (Eliquis) 5 mg BID PO 09/02/16 21:00 09/02/16 21:00 (Depakote Dr) 250 mg TID PO 09/02/16 13:00 09/03/16 13:00 (Namenda) 10 mg BID PO 09/02/16 21:00 09/02/16 21:00 (Glucophage) 1,000 mg BIDPC PO 09/02/16 18:00 09/03/16 08:42 (Prinivil) 40 mg DAILY PO 09/03/16 09:00 09/03/16 08:42 (SEROquel) 50 mg TID PO 09/02/16 13:00 09/03/16 13:20 (VANCOMYCIN for oral use only) 250 mg QID PO 09/02/16 18:00 09/10/16 12:00 09/03/16 13:22 (Flagyl) 500 mg Q8HR PO 09/02/16 14:15 09/10/16 12:00 09/03/16 13:19 (Flomax) 0.8 mg BID PO 09/02/16 21:00 09/03/16 08:42 (Tylenol) 650 mg Q4H PRN PO 09/03/16 08:00 (Tums Chew) 1,000 mg TID PRN CHEW 09/03/16 08:00 (Milk Of Magnesia Liq) 30 ml Q12H PRN PO 09/03/16 08:00 (Senokot) 17.2 mg Q12H PRN PO 09/03/16 08:00 (Lactulose Liq) 30 ml DAILY PRN PO 09/03/16 08:00 (Catapres) 0.1 mg Q6H PRN PO 09/03/16 08:00 (Norvasc) 5 mg DAILY PO 09/03/16 09:00 09/03/16 08:49 (D50w (Vial) Inj) 50 ml UNSCH PRN IV 09/03/16 08:00 (Glucagon Inj) 1 mg UNSCH PRN OTHER 09/03/16 08:00 Family History He denies any family medical history Social History Denies alcohol use and denies tobacco use Denies illicit drug use Physical Exam Vital Signs Vital Signs Date Time Temp Pulse Resp B/P Pulse Ox O2 Delivery O2 Flow Rate FiO2 09/03/16 05:48 97.9 72 20 154/76 98 09/02/16 18:37 97.6 78 18 156/72 97 Physical Exam GENERAL: This is a well-nourished, well-developed patient, in no apparent distress. No signs of dehydration SKIN: No rashes, ecchymoses or lesions. Warm and dry. HEAD: Atraumatic. Normocephalic. No temporal or scalp tenderness. EYES: Pupils equal round and reactive. No scleral icterus. No injection or drainage. ENT: Nose without bleeding. Throat without erythema. Uvula midline. Airway patent. NECK: Trachea midline. CARDIOVASCULAR: Regular rate and rhythm without murmurs, gallops, or rubs. RESPIRATORY: Clear to auscultation. Breath sounds equal bilaterally. No wheezes , rales, or rhonchi. GASTROINTESTINAL: Abdomen soft, non-tender, nondistended. BS Active x4. MUSCULOSKELETAL: Extremities without clubbing, cyanosis, or edema. NEUROLOGICAL: Awake and alert. Confuse. Motor and sensory grossly within normal limits. Normal speech. Assessment and Plan Problem List: (1) Dementia in other diseases classified elsewhere with behavioral disturbance ICD Code: F02.81 Status: Chronic (2) C. difficile diarrhea ICD Code: A04.7 Status: Acute (3) HTN (hypertension) ICD Code: I10 Status: Chronic (4) CVA (cerebral vascular accident) ICD Code: I63.9 Status: Chronic Assessment and Plan Patient is an 81-year-old male with primary medical history of dementia, CAD, HTN, history of CVA on eliquis, DM, BPH, seizure disorder, who was initially admitted to inpatient psychiatric unit under Gao act for evaluation of aggressive behavior. He was having profuse diarrhea and got admitted to inpatient. He was diagnosed with clostridium the physical and was started on Flagyl and vancomycin. He was also had IV fluid hydration. Patient clinically improved and now discharged to medical psychiatry unit for further monitoring. Consulted for medical management. Dementia with behavioral disturbance - Managed by psychiatry team C. difficile diarrhea - Continue Flagyl and vancomycin, end date 09/10/16 - Lactinex - No abdominal symptoms. Formed stools last night CAD HTN Atrial fibrillation - Rate controlled, continue Eliquis - Continue amlodipine 5 mg daily, lisinopril 40 mg daily DM 2 - Hemoglobin A1c 6.5. Controlled - Continue metformin - Accu-Chek, insulin sliding scale Vitamin D insufficiency - Vitamin D supplementation - Repeat vitamin D levels in 3 months as an outpatient BPH - Continue tamsulosin DVT prop Eliquis Code Status Full code Discussed Condition With Patient, nursing This note was transcribed by rafa More. I, Dr. Santiago Sanchez personally performed the history, physical exam, and medical decision making; and confirmed the accuracy of the information in the transcribed note. Authenticated by Dr. Santiago Sanchez on 09/03/16 at 17:02. Juan Manuel Christianson Sep 03, 2016 17:20 Santiago Sanchez MD Sep 03, 2016 17:59
[2016-09-04 02:09] VITALS: BP 170/77; PULSE 87; RESP 18; TEMP 98.7; O2SAT 96
[2016-09-04 03:14] VITALS: BP 183/85; PULSE 73; RESP 20; TEMP 98.9; O2SAT 95
[2016-09-04 05:26] VITALS: BP 172/68; PULSE 80; RESP 16; TEMP 98.1; O2SAT 98
[2016-09-04] MEDS: metroNIDAZOLE 500 MG TAB PO SCH ×4 (05:55→22:07)
[2016-09-04 06:36] VITALS: BP 172/68; PULSE 80; RESP 16; TEMP 98.1; O2SAT 98
[2016-09-04] MEDS: INSULIN ASPART SUPPLEMENTAL SCALE SQ SCH ×2 (07:37→10:37)
[2016-09-04] MEDS: DIVALPROEX SODIUM DELAYED RELEASE 250 MG TAB PO SCH (08:02)
[2016-09-04] MEDS: LISINOPRIL 20 MG TAB PO SCH (08:02)
[2016-09-04] MEDS: QUEtiapine FUMARATE 25 MG TAB PO SCH ×3 (08:03→17:55)
[2016-09-04] MEDS: amLODIPine BESYLATE 5 MG TAB PO SCH (08:03)
[2016-09-04] MEDS: metFORMIN HCL 500 MG TAB PO SCH ×2 (08:03→17:55)
[2016-09-04] MEDS: CHOLECALCIFEROL (VIT D3) 1000 UNIT TAB PO SCH (08:03)
[2016-09-04] MEDS: APIXABAN 5 MG TABLET PO SCH ×3 (08:03→22:03)
[2016-09-04] MEDS: TAMSULOSIN HCL 0.4 MG CAP PO SCH ×3 (08:03→22:03)
[2016-09-04] MEDS: MEMANTINE HCL 10 MG TAB PO SCH ×3 (08:03→22:03)
[2016-09-04] MEDS: VANCOMYCIN 500 MG VIAL (FOR ORAL USE ONLY) PO SCH ×5 (08:04→22:05)
--- NOTE | 2016-09-04 09:18 | HHI.PR ---
Subjective Remarks Follow-up C. difficile, hypertension and diabetes mellitus. Patient has been restless and agitated and sustained a fall. Patient complains of "toothache " in the right arm. Discussed with RN, If humerus x-ray negative for fracture, patient is medically stable and cleared for transfer to regular psychiatry floor. Formed BM 1 yesterday Objective Vitals Vital Signs Date Time Temp Pulse Resp B/P Pulse Ox O2 Delivery O2 Flow Rate FiO2 09/04/16 06:36 98.1 80 16 172/68 98 09/04/16 05:26 98.1 80 16 172/68 98 09/04/16 03:14 98.9 73 20 183/85 95 09/04/16 02:09 98.7 87 18 170/77 96 I/O 09/03/16 09/03/16 09/03/16 09/04/16 09/04/16 09/04/16 07:00 15:00 23:00 07:00 15:00 23:00 Intake Total 480 ml 360 ml 240 ml 1800 ml Output Total 4 ml 2 ml Balance 476 ml 360 ml 240 ml 1798 ml Intake Oral 480 ml 360 ml 240 ml 1800 ml Output Urine Total 4 ml Stool Total 2 ml # Voids 6 # Bowel Movements 1 Imaging Last Impressions Radius/Ulna X-Ray 09/04/16 0000 Signed Impressions: Service Date/Time: August 08:23 - CONCLUSION: Chondrocalcinosis. Tobias Morris MD Clavicle X-Ray 09/04/16 0000 Signed Impressions: Service Date/Time: August 08:26 - CONCLUSION: Chronic changes and no evidence for acute fracture. Tobias Morris MD Objective Remarks GENERAL: This is a well-nourished, well-developed patient, in no apparent distress. No signs of dehydration SKIN: No rashes, ecchymoses or lesions. Warm and dry. HEAD: Atraumatic. Normocephalic. No temporal or scalp tenderness. EYES: Pupils equal round and reactive. No scleral icterus. No injection or drainage. ENT: Nose without bleeding. Throat without erythema. Uvula midline. Airway patent. NECK: Trachea midline. CARDIOVASCULAR: Regular rate and rhythm without murmurs, gallops, or rubs. RESPIRATORY: Clear to auscultation. Breath sounds equal bilaterally. No wheezes , rales, or rhonchi. GASTROINTESTINAL: Abdomen soft, non-tender, nondistended. BS Active x4. MUSCULOSKELETAL: Extremities without clubbing, cyanosis, or edema. Tender right forearm no deformity noted NEUROLOGICAL: Awake and alert. Confused. Motor and sensory grossly within normal limits. Normal speech. A/P Problem List: (1) Dementia in other diseases classified elsewhere with behavioral disturbance ICD Code: F02.81 Status: Chronic (2) C. difficile diarrhea ICD Code: A04.7 Status: Acute (3) HTN (hypertension) ICD Code: I10 Status: Chronic (4) CVA (cerebral vascular accident) ICD Code: I63.9 Status: Chronic Assessment and Plan Patient is an 81-year-old male with primary medical history of dementia, CAD, HTN, history of CVA on eliquis, DM, BPH, seizure disorder, who was initially admitted to inpatient psychiatric unit under Gao act for evaluation of aggressive behavior. He was having profuse diarrhea and got admitted to inpatient. He was diagnosed with clostridium the physical and was started on Flagyl and vancomycin. He was also had IV fluid hydration. Patient clinically improved and now discharged to medical psychiatry unit for further monitoring. Consulted for medical management. Dementia with behavioral disturbance - Managed by psychiatry team C. difficile diarrhea. Resolving. - Continue Flagyl and vancomycin, end date 09/10/16 - Lactinex - No abdominal symptoms. Formed stools yesterday CAD HTN. Uncontrolled Atrial fibrillation - Rate controlled, continue Eliquis - Increase amlodipine to 10 mg daily continue lisinopril 40 mg daily and monitor DM 2 - Hemoglobin A1c 6.5. Controlled - Continue metformin fingerstick stable - Discontinue Accu-Chek, insulin sliding scale Vitamin D insufficiency - Vitamin D supplementation - Repeat vitamin D levels in 3 months as an outpatient BPH - Continue tamsulosin Fall with tender right arm. Obtain humerus x-ray. Pain management. Fall precautions DVT prop Eliquis Discharge Planning If humerus x-ray negative for fracture, patient is medically stable and cleared for transfer to regular psychiatry floor Santiago Sanchez MD Sep 04, 2016 09:18
--- NOTE | 2016-09-04 09:45 | RADRPT ---
EXAM DATE/TIME: 09/04/2016 08:23 [facility] COMPARISON: No previous studies available for comparison. INDICATIONS : Right forearm pain, denies injury MEDICAL HISTORY : None. SURGICAL HISTORY : None. ENCOUNTER: Initial ACUITY: 1 day PAIN SCORE: Non-responsive. LOCATION: Right Forearm FINDINGS: No definite fractures, or dislocations are identified. No definite lytic or sclerotic lesion is seen . Chronic atherosclerotic calcifications are seen involving the visualized arteries. There is chondro calcinosis involving the triangular cartilage. CONCLUSION: Chondrocalcinosis. Tobias Morris MD on September 04, 2016 at 9:43 Board Certified Radiologist. This report was verified electronically.
--- NOTE | 2016-09-04 09:48 | RADRPT ---
EXAM DATE/TIME: 09/04/2016 08:26 [facility] COMPARISON: No previous studies available for comparison. INDICATIONS : Right clavicle pain, denies injury MEDICAL HISTORY : Cardiovascular disease. SURGICAL HISTORY : CABG. ENCOUNTER: Initial ACUITY: 1 day PAIN SCORE: Non-responsive. LOCATION: Right Clavicle FINDINGS: No definite fractures, dislocations, lytic, or sclerotic lesions are seen. 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 Slight hypertrophic changes are seen in the AC joint indenting th e subacromial fat plane to a slight degree with some acromial spur. The clavicle appears intact. CONCLUSION: Chronic changes and no evidence for acute fracture. Tobias Morris MD on September 04, 2016 at 9:44 Board Certified Radiologist. This report was verified electronically.
--- NOTE | 2016-09-04 13:22 | HHI.PYPN ---
Subjective Remarks Patient is seen today for psychiatric evaluation, oppositional, irritable, stating that he doesn't trust anybody, that he doesn't want to talk, he has been episodically agitated, pacing around, difficult to manage in the unit. Last night he fell twice, x-rays ordered already, he doesn't complain of pain. Review of Systems Other No somatic complaints at this moment Objective Alert: Yes [place]: Person Mood: Calm Affect: Appropriate Memory Intact: Immediate Hallucinations: Other (denies hallucinations) Delusions: No Delusion Type: Other (not illicit) Suicidal: Ideation (denies SI) Homicidal: Ideation (denies HI) Insight/Judgment Poor Vitals/IOs Vital Signs Date Time Temp Pulse Resp B/P Pulse Ox O2 Delivery O2 Flow Rate FiO2 09/04/16 06:36 98.1 80 16 172/68 98 Intake and Output 09/03/16 09/03/16 09/04/16 08:00 16:00 00:00 Intake Total 480 ml 360 ml 1440 ml Output Total 4 ml 2 ml Balance 476 ml 360 ml 1438 ml Assessment & Plan Problem List: (1) Dementia in other diseases classified elsewhere with behavioral disturbance Assessment & Plan: Patient continues to have episodic agitation and aggressive behavior, sleeping poorly at night, pacing in the landers, last myself twice. Will increase Seroquel to 50 mg at am and 100 mg. ICD Code: F02.81 Assessment & Plan Estimated LOS: days Justification for Cont. Inpt. Patient has an increased risk to decompensate at the lower level of care. Bo Early MD Sep 04, 2016 13:22
--- NOTE | 2016-09-04 14:38 | RADRPT ---
EXAM DATE/TIME: 09/04/2016 13:58 [place] COMPARISON: No previous studies available for comparison. INDICATIONS : Right arm pain; no known injury. MEDICAL HISTORY : None. SURGICAL HISTORY : None. ENCOUNTER: Initial ACUITY: 1 day PAIN SCORE: Non-responsive. LOCATION: Right humerus FINDINGS: Two view examination of the right humerus demonstrates no evidence of fracture or dislocation. Bony mineralization is normal. The soft tissue structures are intact. CONCLUSION: No acute disease. Zafar Angelo Jr., MD on September 04, 2016 at 14:36 Board Certified Radiologist. This report was verified electronically.
[2016-09-04 18:25] VITALS: BP 159/67; PULSE 80; RESP 17; O2SAT 98
[2016-09-04] MEDS: DIVALPROEX DR 500 MG TABEC PO SCH ×2 (22:02→23:58)
[2016-09-05 06:00] VITALS: BP 158/62; PULSE 64; RESP 20; TEMP 98.4
[2016-09-05] MEDS: metroNIDAZOLE 500 MG TAB PO SCH ×2 (06:18→14:00)
[2016-09-05] MEDS ORDERED: QUEtiapine FUMARATE 25 MG TAB PO SCH (09:00)
[2016-09-05] MEDS: LISINOPRIL 20 MG TAB PO SCH (09:00)
[2016-09-05] MEDS: TAMSULOSIN HCL 0.4 MG CAP PO SCH (09:00)
[2016-09-05] MEDS: VANCOMYCIN 500 MG VIAL (FOR ORAL USE ONLY) PO SCH ×2 (09:00→13:00)
[2016-09-05] MEDS: MEMANTINE HCL 10 MG TAB PO SCH (09:00)
[2016-09-05] MEDS: CHOLECALCIFEROL (VIT D3) 1000 UNIT TAB PO SCH (09:10)
[2016-09-05] MEDS: metFORMIN HCL 500 MG TAB PO SCH (09:12)
[2016-09-05] MEDS: APIXABAN 5 MG TABLET PO SCH (09:12)
[2016-09-05] MEDS ORDERED: APIX5TAB PO (14:33)
[2016-09-05] MEDS ORDERED: VITA1000 PO (14:33)
[2016-09-05] MEDS ORDERED: NAME10TA PO (14:33)
[2016-09-05] MEDS ORDERED: METR-1 PO (14:33)
[2016-09-05] MEDS ORDERED: METF500 PO (14:33)
[2016-09-05] MEDS ORDERED: DIVA500T PO (14:33)
[2016-09-05] MEDS ORDERED: VANC250C2 PO (14:33)
[2016-09-05] MEDS ORDERED: TAMS5CAP PO (14:33)
[2016-09-05] MEDS ORDERED: LISI-515 PO (14:33)
[2016-09-05] MEDS ORDERED: QUET1TAB7 PO (14:33)
[2016-09-05] MEDS ORDERED: AMLO10 PO (14:33)
--- NOTE | 2016-09-05 14:42 | HHI.DS ---
Psychiatry Discharge Summary Inpatient Psychiatric care?: Yes Advance Directive: No Reason Not Provided: [facility] AdvanceDirective: No Health Care Proxy: No Admission Admission Date Sep 02, 2016 at 09:51 Admission Diagnosis: (1) Dementia in other diseases classified elsewhere with behavioral disturbance ICD Code: F02.81 (2) C. difficile diarrhea ICD Code: A04.7 Brief History Initial H&P by Dr. Ely: This is an 81-year-old male with a history of dementia , CVA, cardiac disease, diabetes, and recent sundowning. Apparently the patient was recently at [facility] and last night he became agitated, belligerent and physically aggressive towards staff members. As a result of his violence and attempted violence toward staff members, he was Gao acted. At this time the patient is calm, pleasant and cooperative. He does not have a complete memory of what occurred last night. He is telling this physician that he was in some way disrespected by staff. However, this physician spoke with the patient's daughter, who is an emergency room nurse. The daughter indicates that her father sundown's rather badly in the late afternoon and early evening. At these times he becomes very confused, paranoid and aggressive towards others. He was recently treated at [facility] and had significant cardiac reactions to Haldol and Ativan, substantially altering his blood pressure, heart rate, etc. and necessitating intensive care monitoring. He was eventually placed on Seroquel 50 mg 3 times a day and Depakote 250 mg 3 times a day. Unfortunately, it appears these medicines are not working as the patient continues to sundown with violence towards others. He does not have a history of alcoholism or drug abuse. However, his daughter states since his cerebral vascular accident, he has been much more difficult to manage. Follow-up in the medical floor by Dr. Early 09/01/2016 Patient was seen today for psychiatric reevaluation, patient was sitting down in a chair, his daughter was shaving him. He seems to be comfortable, he is calm, cooperative, pleasantly confused. He reports good mood, he is able to recognize his daughter , even though his disoriented in time and place. He denies suicidal or homicidal ideation, he denies visual and auditory hallucinations. No agitation , hostility, irritability, aggressive behavior observed at this moment. His daughter Flory Kaufman, who is his healthcare by proxy, is states that the patient has been calm today, but very agitated, disorganized and difficult to manage at night time. She says that this episodic aggressive behavior is new and is not part of his baseline. She is afraid that if the patient is discharged to long-term at this moment there was sent him back on the Gao act. She will feel more comfortable if patient is stabilized a little more in the psychiatric unit. Today on psychiatric reevaluation in the [facility] psych unit patient is a sleeping, poorly cooperative, however, he says that he feels much better, his disoriented pleasantly confused. He denies suicidal or homicidal ideation, he denies visual and auditory hallucinations. He denies depressive symptoms, no agitation or aggressive behavior reported in the last 24 hours. Patient is compliant with medications. Tobacco Use In Past 30 Days: Cognitive Impairment Alcohol Use: Never Hospital Course Patient today was transferred from the [facility] psych unit on 4 E. here to 2500. Continues to mentate confused needing assistance and at times intervention. His family was here requesting transfer as soon as possible to a long-term facility. The family has contacted [facility]. He has been accepted there today there is a bed available today at [facility]. We have talked to the medical service for this gentleman also they have given medical clearance from to be discharged today to undergo palms. No right 1 month supply of is scheduled medications. Patient to be discharged to that facility today Results Blood Pressure 158 / 62 Vital Signs Date Time Temp Pulse Resp B/P Pulse Ox O2 Delivery O2 Flow Rate FiO2 09/05/16 06:00 98.4 64 20 158/62 09/04/16 18:25 98 Laboratory Results Test 09/02/16 16:01 Valproic Acid (Depakene) Level 52 MCG/ML (50-100) Summary of Procedures None done Imaging Last Impressions Radius/Ulna X-Ray 09/04/16 0000 Signed Impressions: Service Date/Time: August 08:23 - CONCLUSION: Chondrocalcinosis. Tobias Morris MD Humerus X-Ray 09/04/16 0000 Signed Impressions: Service Date/Time: August 13:58 - CONCLUSION: No acute disease. Zafar Angelo Jr., MD Clavicle X-Ray 09/04/16 0000 Signed Impressions: Service Date/Time: August 08:26 - CONCLUSION: Chronic changes and no evidence for acute fracture. Tobias Morris MD Pending results at discharge: No Medications # of Antipsychotic meds at D/C: 1 Approp Antipsych med options 1 - Minimum of three failed multiple trials of monotherapy. 2 - Documented plan to taper to monotherapy due to previous use of multiple meds OR cross-taper in progress at D/C. 3 - Documentation of augmentation of Clozapine. 4 - Justification other than those listed in allowable values 1-3, document here : Discharge Discharge Date: Sep 05, 2016 Discharge Diagnosis: (1) Dementia in other diseases classified elsewhere with behavioral disturbance Diagnosis: Principal ICD Code: F02.81 (2) C. difficile diarrhea Diagnosis: Secondary (treated, in partial remission) ICD Code: A04.7 Mental Status Exam at Disch Alert diffusely confused disoriented elderly white male sitting in [place] chair. Is diffusely confused all 4 spheres mood is labile with a times increase range intensity of his affect, speech is markedly disorganized to unintelligible little auditory or visual hallucinations noted no delusions noted site judgment is essentially nil admission is markedly impaired Pt Condition on Discharge: Stable Discharge Disposition: Discharge to SNF Discharge Instructions Diet Instructions: Diabetic Diet Additional Diet Instructions: 1800-calorie ADA diet Activities you can perform: Regular-No Restrictions Scheduled Appointment: follow-up medical and psychiatric services through [facility] Discharge Time > 30 minutes Discharge/Advance Care Plan Health Problems: (1) Dementia in other diseases classified elsewhere with behavioral disturbance Goals to promote your health * To prevent worsening of your condition and complications * To maintain your health at the optimal level Directions to meet your goals Take your medications as prescribed Follow your dietary instruction Follow activity as directed Keep your appointments as scheduled Take your immunizations and boosters as scheduled If your symptoms worsen call your PCP, if no PCP go to Urgent Care Center or Emergency Room For 24/ questions related to your inpatient stay or results of tests pending at discharge, please contact Dr. Jeovanny Stewart at Smoking is Dangerous to Your Health. Avoid second hand smoking Jeovanny Stewart MD Sep 05, 2016 14:42
== END 2016-09-05 16:05 | DRG 884 ==
LOC: H4EA 09-02 09:51 → H250 09-04 10:55
PROVIDERS: ADMIT Psychiatry & Neurology Psychiatry; ATTEND Psychiatry & Neurology Psychiatry
DX: F03.91 Unspecified dementia, unspecified severity, with behavioral disturbance (principal); A04.7 Enterocolitis due to Clostridium difficile; I48.91 Unspecified atrial fibrillation; E11.9 Type 2 diabetes mellitus without complications; R45.1 Restlessness and agitation; N40.0 Benign prostatic hyperplasia without lower urinary tract symptoms; R19.7 Diarrhea, unspecified; I10 Essential (primary) hypertension; I25.10 Atherosclerotic heart disease of native coronary artery without angina pectoris; Z79.02 Long term (current) use of antithrombotics/antiplatelets; E55.9 Vitamin D deficiency, unspecified; W19.XXXA Unspecified fall, initial encounter; Z86.73 Personal history of transient ischemic attack (TIA), and cerebral infarction without residual deficits; Z95.1 Presence of aortocoronary bypass graft
CPT/HCPCS: 73000; 73060; 73090; 80164; 82948; J1815